=== PATIENT | female | born 1950 | race African-American/Black ===

== ENCOUNTER → 2016-12-25 | Outpatient (CLI) | payer MEDICARE, MEDICAID ==
[~2016-12-25] MED LIST: ALBU8I INH; AMLO5TAB2 PO; BRIN1SUS2 RIGHT EYE; CALC.25 PO; CARD120C4 PO; CLON.2 PO; CLON0.2T PO; COEN1CAP PO; DILT120C9 PO; DILT120T PO; DOXA1TAB34 PO; DOXA1TAB35 PO; GLUC1CAP16; LORTA5 PO; LOTE0.5G RIGHT EYE; LOVA20TA PO; LUMI0.01 EACH EYE; MEDR4PAK3 PO; OMEG1CAP50 PO; PNEU13P IM; POLYSOL14 EACH EYE; VENTAER INH; VITA2000 PO; VITA500T4 PO; WHIT15OI OP
[2016-12-25 11:14] LABS: AUTOMATED NEUTROPHIL # 3.5 TH/MM3 (1.8-7.7); BASOPHIL % 0.9 % (0.0-2.0); EOSINOPHIL # 0.1 TH/MM3 (0-0.4); EOSINOPHIL % 1.3 % (0.0-4.0); HEMATOCRIT 31.7 % (35.0-46.0); HEMO FLAGS DIFF FINAL; LYMPH % 24.6 % (9.0-44.0); LYMPHOCYTE # 1.3 TH/MM3 (1.0-4.8); MEAN CELL VOLUME 90.7 FL (80.0-100.0); MEAN CORPUSCULAR HEMOGLOBIN 31.1 PG (27.0-34.0); MEAN CORPUSCULAR HGB CONC 34.3 % (32.0-36.0); MONO % 6.9 % (0.0-8.0); NEUT % 66.3 % (16.0-70.0); PLATELET COUNT 163 TH/MM3 (150-450); RED BLOOD COUNT 3.49 MIL/MM3 (4.00-5.30); RED CELL DISTRIBUTION WIDTH 12.7 % (11.6-17.2); WHITE BLOOD COUNT 5.3 TH/MM3 (4.0-11.0)
[2016-12-25 11:46] LABS: ANION GAP 8 MEQ/L (5-15); AST (GOT) 9 U/L (15-37); BICARBONATE 27.3 MEQ/L (21.0-32.0); BLOOD UREA NITROGEN 32 MG/DL (7-18); CHLORIDE 108 MEQ/L (98-107); GLOMERULAR FILTRATION RATE 24 ML/MIN (>89); GLUCOSE,FASTING 90 MG/DL (74-99); SODIUM (NA) 143 MEQ/L (136-145)
[2016-12-25 11:57] LABS: ALKALINE PHOSPHATASE 70 U/L (45-117); ALT (GPT) 22 U/L (10-53); HDL CHOLESTEROL 49.6 MG/DL (40.0-60.0); LDL CHOLESTEROL 84 MG/DL (0-99); TOTAL BILIRUBIN ADULT 0.5 MG/DL (0.2-1.0)
[2016-12-25 16:16] LABS: HEMOGLOBIN A1b 0.7 %; HEMOGLOBIN Ao 86.8 %; HEMOGLOBIN F 0.8 %; HEMOGLOBIN LA1C 1.9 %; HEMOGLOBIN P3 3.7 %
== END ==
LOC: CLAB 10:40
PROVIDERS: ATTEND Internal Medicine Geriatric Medicine
DX: Z87.448 Personal history of other diseases of urinary system (principal); Z13.29 Encounter for screening for other suspected endocrine disorder; Z13.1 Encounter for screening for diabetes mellitus; Z11.59 Encounter for screening for other viral diseases; Z11.4 Encounter for screening for human immunodeficiency virus [HIV]; Z12.11 Encounter for screening for malignant neoplasm of colon
CPT/HCPCS: 36415; 80053; 80061; 83036; 84443; 85025; 86703; 86803

== ENCOUNTER → 2017-01-08 | Outpatient (CLI) | payer MEDICARE, MEDICAID ==
[~2017-01-08] MED LIST changes: -ALBU8I INH; -CALC.25 PO; -CARD120C4 PO; -CLON.2 PO; -DILT120C9 PO; -LORTA5 PO; -LOTE0.5G RIGHT EYE; -MEDR4PAK3 PO; -PNEU13P IM; -WHIT15OI OP
[2017-01-08 13:58] LABS: FERRITIN 149 NG/ML (8-252); TRANSFERRIN IRON PROFILE 194 MG/DL (200-360)
== END ==
LOC: CLAB 12:44
PROVIDERS: ATTEND Family Medicine
DX: D64.9 Anemia, unspecified (principal)
CPT/HCPCS: 36415; 82607; 82728; 82746; 83540; 83550

== ENCOUNTER → 2017-03-05 | Outpatient (CLI) | payer MEDICARE, MEDICAID ==
[~2017-03-05] MED LIST changes: -DILT120T PO; -DOXA1TAB35 PO
[2017-03-05 10:40] LABS: HEMATOCRIT 29.4 % (35.0-46.0); MEAN CELL VOLUME 91.4 FL (80.0-100.0); MEAN CORPUSCULAR HEMOGLOBIN 30.5 PG (27.0-34.0); MEAN CORPUSCULAR HGB CONC 33.4 % (32.0-36.0); PLATELET COUNT 165 TH/MM3 (150-450); RED BLOOD COUNT 3.21 MIL/MM3 (4.00-5.30); RED CELL DISTRIBUTION WIDTH 13.4 % (11.6-17.2); REVIEW FLAG FINAL; WHITE BLOOD COUNT 5.6 TH/MM3 (4.0-11.0)
[2017-03-05 11:05] LABS: BICARBONATE 27.5 MEQ/L (21.0-32.0); POTASSIUM 4.3 MEQ/L (3.5-5.1)
== END ==
LOC: CLAB 10:09
PROVIDERS: ATTEND Family Medicine
DX: I10 Essential (primary) hypertension (principal)
CPT/HCPCS: 36415; 80048; 85027

== ENCOUNTER → 2017-03-29 | Outpatient (CLI) | payer MEDICARE, MEDICAID ==
[2017-03-29 09:08] LABS: BASOPHIL % 0.4 % (0.0-2.0); EOSINOPHIL # 0.1 TH/MM3 (0-0.4); EOSINOPHIL % 1.4 % (0.0-4.0); HEMATOCRIT 28.2 % (35.0-46.0); HEMO FLAGS DIFF FINAL; LYMPH % 20.4 % (9.0-44.0); LYMPHOCYTE # 1.2 TH/MM3 (1.0-4.8); MEAN CELL VOLUME 90.9 FL (80.0-100.0); MEAN CORPUSCULAR HEMOGLOBIN 30.4 PG (27.0-34.0); MEAN CORPUSCULAR HGB CONC 33.4 % (32.0-36.0); MONO % 7.3 % (0.0-8.0); NEUT % 70.5 % (16.0-70.0); PLATELET COUNT 134 TH/MM3 (150-450); RED CELL DISTRIBUTION WIDTH 13.2 % (11.6-17.2); WHITE BLOOD COUNT 5.7 TH/MM3 (4.0-11.0)
[2017-03-29 09:17] LABS: BICARBONATE 27.4 MEQ/L (21.0-32.0); POTASSIUM 4.8 MEQ/L (3.5-5.1)
[2017-03-29 09:19] LABS: TOTAL PROTEIN SPE 6.2 GM/DL (6.0-7.6)
[2017-03-29 09:20] LABS: BLOOD, URINE NEG (NEG); GLUCOSE,URINE NEG (NEG); KETONE, URINE NEG (NEG); NITRITE,URINE NEG (NEG); PH, URINE 5.5 (5.0-8.5); SQUAMOUS EPITHELIAL CELL URINE <1 /hpf (0-5); URINE COLOR YELLOW (YELLW/STRAW)
[2017-03-29 22:33] LABS: ALBUMIN SPE 3.92 GM/DL (3.50-5.00); ALPHA 1 GLOBULIN 0.2 GM/DL (0.11-0.29); ALPHA 2 GLOBULIN 0.71 GM/DL (0.22-1.00); BETA GLOBULINS (SPE) 0.74 GM/DL (0.53-1.03)
== END ==
LOC: CLAB 08:33
PROVIDERS: ATTEND Internal Medicine Nephrology
DX: I12.9 Hypertensive chronic kidney disease with stage 1 through stage 4 chronic kidney disease, or unspecified chronic kidney disease (principal); N18.4 Chronic kidney disease, stage 4 (severe); N25.81 Secondary hyperparathyroidism of renal origin; R82.90 Unspecified abnormal findings in urine
CPT/HCPCS: 36415; 80069; 81001; 82043; 84165; 85025; 86335; 87086

== ENCOUNTER → 2017-05-22 | Outpatient (CLI) | payer MEDICARE, MEDICAID ==
[~2017-05-22] MED LIST changes: +CARD120T4 PO; +DILT120T PO; +FRESDRO EACH EYE; +MUPI2OIN TOPICAL; -POLYSOL14 EACH EYE
[2017-05-22 09:48] LABS: AUTOMATED NEUTROPHIL # 4.2 TH/MM3 (1.8-7.7); BASOPHIL % 0.3 % (0.0-2.0); EOSINOPHIL # 0.1 TH/MM3 (0-0.4); EOSINOPHIL % 1.4 % (0.0-4.0); HEMATOCRIT 30.5 % (35.0-46.0); HEMO FLAGS DIFF FINAL; LYMPH % 20.8 % (9.0-44.0); LYMPHOCYTE # 1.2 TH/MM3 (1.0-4.8); MEAN CELL VOLUME 92.4 FL (80.0-100.0); MEAN CORPUSCULAR HEMOGLOBIN 30.8 PG (27.0-34.0); MEAN CORPUSCULAR HGB CONC 33.3 % (32.0-36.0); MONO % 6.6 % (0.0-8.0); NEUT % 70.9 % (16.0-70.0); PLATELET COUNT 159 TH/MM3 (150-450); RED CELL DISTRIBUTION WIDTH 12.8 % (11.6-17.2)
[2017-05-22 10:09] LABS: ANION GAP 7 MEQ/L (5-15); BICARBONATE 28.4 MEQ/L (21.0-32.0); BLOOD UREA NITROGEN 30 MG/DL (7-18); CHLORIDE 108 MEQ/L (98-107); GLOMERULAR FILTRATION RATE 18 ML/MIN (>89); GLUCOSE,FASTING 92 MG/DL (74-99); POTASSIUM 4.1 MEQ/L (3.5-5.1); SODIUM (NA) 143 MEQ/L (136-145)
[2017-05-22 10:10] LABS: TRANSFERRIN IRON PROFILE 193 MG/DL (200-360)
[2017-05-24 03:53] LABS: MYELOPEROXIDASE LESS THAN 1.0 AI (<1.0); PROTEINASE-3 LESS THAN 1.0 AI (<1.0)
== END ==
LOC: CLAB 09:18
PROVIDERS: ATTEND Internal Medicine Nephrology
DX: I12.9 Hypertensive chronic kidney disease with stage 1 through stage 4 chronic kidney disease, or unspecified chronic kidney disease (principal); N18.4 Chronic kidney disease, stage 4 (severe); D63.1 Anemia in chronic kidney disease; N25.81 Secondary hyperparathyroidism of renal origin
CPT/HCPCS: 36415; 80069; 82043; 83540; 83550; 85025; 86021; 86038

== ENCOUNTER → 2017-09-10 | Outpatient (CLI) | payer MEDICARE, MEDICAID ==
[~2017-09-10] MED LIST changes: +ALBUAER3 INH; +BOOSINJ IM; -CARD120T4 PO; +FLU60SYR17 IM; -VENTAER INH
[2017-09-10 10:41] LABS: AUTOMATED NEUTROPHIL # 5.4 TH/MM3 (1.8-7.7); BASOPHIL # 0.1 TH/MM3 (0-0.2); BASOPHIL % 0.7 % (0.0-2.0); EOSINOPHIL # 0.1 TH/MM3 (0-0.4); EOSINOPHIL % 0.9 % (0.0-4.0); HEMATOCRIT 32.2 % (35.0-46.0); HEMO FLAGS DIFF FINAL; LYMPH % 17.3 % (9.0-44.0); LYMPHOCYTE # 1.3 TH/MM3 (1.0-4.8); MEAN CELL VOLUME 92.7 FL (80.0-100.0); MEAN CORPUSCULAR HEMOGLOBIN 31.6 PG (27.0-34.0); MEAN CORPUSCULAR HGB CONC 34.1 % (32.0-36.0); MONO % 7.9 % (0.0-8.0); NEUT % 73.2 % (16.0-70.0); PLATELET COUNT 163 TH/MM3 (150-450); RED BLOOD COUNT 3.47 MIL/MM3 (4.00-5.30); WHITE BLOOD COUNT 7.4 TH/MM3 (4.0-11.0)
[2017-09-10 11:03] LABS: BICARBONATE 28.8 MEQ/L (21.0-32.0); POTASSIUM 4.5 MEQ/L (3.5-5.1)
== END ==
LOC: CLAB 10:11
PROVIDERS: ATTEND Internal Medicine Nephrology
DX: I12.9 Hypertensive chronic kidney disease with stage 1 through stage 4 chronic kidney disease, or unspecified chronic kidney disease (principal); N18.4 Chronic kidney disease, stage 4 (severe); N25.81 Secondary hyperparathyroidism of renal origin
CPT/HCPCS: 36415; 80069; 82043; 82306; 83970; 85025

== ENCOUNTER 2017-10-11 14:56 | Inpatient (IN) | payer OTHER, MEDICARE, MEDICAID ==
[~2017-10-11] VITALS: Ht 170.2 cm; Wt 104.6 kg
[~2017-10-11 14:56] MED LIST changes: -BOOSINJ IM; -FLU60SYR17 IM
[2017-10-11 14:58] VITALS: BP 109/64; PULSE 83; RESP 20; TEMP 98.3; O2SAT 98
[2017-10-11] MEDS ORDERED: SODIUM CHLOR 0.9% 1000 ML INJ 1,000 ML IV ONE (16:01)
--- NOTE | 2017-10-11 16:05 | PD ---
HPI Chief Complaint: Syncope/Near-Syncope Time Seen by Provider: 15:55 Travel History International Travel<30 days: No Contact w/Intl Traveler<30days: No Traveled to known affect area: No History of Present Illness HPI 66-year-old Afro-[place]ic female presents the emergency department via POV with her friend, status post syncopal episode. 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 Her friend went to get her car and the patient had a syncopal episode that she does not recall. She feels she probably hit the back of her head and is complaining of right ankle pain. Patient has no history of syncope in the past. Patient is not diabetic. She does take hypertension medications which she does not remember the name of. Patient denies recent illness. She states she ate brunch at approximately 11: 00 this morning. Patient did feel nauseous prior to passing out. She now feels improved. She denies headache, or ongoing dizziness or nausea. Does have right ankle pain and does not want to ambulate on it. There are no open wounds or abrasions noted. Patient is allergic to all claude inhibitors, enalapril , and cayenne pepper. PFSH Past Medical History Arthritis: No Asthma: Yes Autoimmune Disease: No Anxiety: No Depression: No Heart Rhythm Problems: No Cancer: No Cardiovascular Problems: No High Cholesterol: No Chemotherapy: No Chest Pain: No Congestive Heart Failure: No COPD: No Cerebrovascular Accident: No Diabetes: No Diminished Hearing: No Endocrine: No GERD: No Glaucoma: Yes (NO RX) Genitourinary: No Hepatitis: Yes (HEPATITIS B) Hiatal Hernia: No Hypertension: Yes Immune Disorder: No Kidney Stones: No Musculoskeletal: No Neurologic: No Psychiatric: No Reproductive: Yes (HX. FIBROIDS/UTERINE POLYP, UTERINE MASS CURRENT) Respiratory: Yes Immunizations Current: Yes Migraines: No Radiation Therapy: No Renal Failure: No Seizures: No Sickle Cell Disease: No Sleep Apnea: No Thyroid Disease: No Ulcer: No Menopausal: Yes Past Surgical History Abdominal Surgery: No AICD: No Arteriovenous Shunt: No Cardiac Surgery: No Ear Surgery: No Endocrine Surgery: No Eye Surgery: Yes Genitourinary Surgery: No Gynecologic Surgery: Yes (FIBROIDS REMOVED, UTERINE POLYPECTOMY) Insulin Pump: No Joint Replacement: No Neurologic Surgery: No Oral Surgery: No Pacemaker: No Thoracic Surgery: No Other Surgery: Yes (POLYPS REMOVED, breast biopsy ) Social History Alcohol Use: No Tobacco Use: No Substance Use: No Allergies-Medications (Allergen,Severity, Reaction): Coded Allergies: benazepril (Unverified Allergy, Severe, Anaphylaxis, 10/11/17) captopril (Unverified Allergy, Severe, Anaphylaxis, 10/11/17) enalaprilat (Unverified Allergy, Severe, Anaphylaxis, 10/11/17) fosinopril (Unverified Allergy, Severe, Anaphylaxis, 10/11/17) lisinopril (Unverified Allergy, Severe, ANAPHYLACTIC REACTION, 10/11/17) quinapril (Unverified Allergy, Severe, Anaphylaxis, 10/11/17) cayenne pepper fruits (Unverified Allergy, Intermediate, Hives, 10/11/17) phenobarbital (Unverified Allergy, Mild, 10/11/17) Reported Meds & Prescriptions Reported Meds & Active Scripts Active Proair Hfa 8.5 GM Inh (Albuterol Sulfate) 90 Mcg/Act Aer 2 Puff INH Q4-6H PRN 108 mcg/actuation Diltiazem (Diltiazem HCl) 120 Mg Tab 120 Mg PO QID Mupirocin Topical (Mupirocin) 2 % Oint 1 Applic TOPICAL BID Amlodipine (Amlodipine Besylate) 5 Mg Tab 5 Mg PO DAILY Doxazosin (Doxazosin Mesylate) 4 Mg Tab 4 Mg PO DAILY Lovastatin 20 Mg Tab 20 Mg PO DAILY Reported [place] Opth (Polyvinyl Alcohol-Povidone Opth Drops) 2.7-2 % Soln 1 Drop EACH EYE QID Vitamin B-12 (Cyanocobalamin) 500 Mcg Tab 500 Mcg PO DAILY Glucosamine Chondroitin (Mxtephmfyty-Dbsazgkbadu-Lbb C-) 1 Cap Cap [place] 3 500 500 mg ([place]-3 Fatty Acids) 1 Cap Cap 1,000 Mg PO DAILY Vitamin D3 (Cholecalciferol) 2,000 Unit Cap 2,000 Units PO DAILY Co Q-10 (Coenzyme Q10 (Ubidecarenone)) 100 Mg Cap 100 Mg PO DAILY Clonidine (Clonidine HCl) 0.2 Mg Tab 0.2 Mg PO BID [place] Opth Drops (Bimatoprost) 0.01% Soln 1 Drop EACH EYE HS Simbrinza Opth Drops (Brinzolamide-Brimonidine Opth Drops) 1-0.2% Susp 1 Drop RIGHT EYE Q8HR Review of Systems Except as stated in HPI: all other systems reviewed are Neg General / Constitutional: No: Fever, Chills Eyes: No: Visual changes HENT: Positive: Lightheadedness, No: Headaches, Vertigo (see history of present illness), Sore Throat, Rhinitis, Rhinorrhea, Congestion, Nosebleed, Neck Stiffness, Neck Pain, Dental Difficulties, Earache Cardiovascular: No: Chest Pain or Discomfort Respiratory: No: Shortness of Breath Gastrointestinal: Positive: Nausea (previously), No: Vomiting, Diarrhea, Abdominal Pain Genitourinary: No: Dysuria Musculoskeletal: No: Pain Skin: No Rash Neurologic: Positive: Dizziness, Syncope, No: Weakness, Focal Abnormalities, Coordination Problem, Tremor, Ataxia, Headache, Change in Mentation Psychiatric: No: Depression Endocrine: No: Polydipsia Hematologic/Lymphatic: No: Easy Bruising Physical Exam Narrative GENERAL: Patient appears in no obvious distress. SKIN: Warm and dry. Normal color. Normal turgor. No signs of injury. HEAD: Atraumatic. Normocephalic. Nontender with palpation. EYES: Pupils equal and round. No scleral icterus. No injection or drainage. ENT: No nasal bleeding or discharge. Mucous membranes pink and moist. No dental injury. TMs are clear Bilaterally. Posterior pharynx is clear. Airway is patent. NECK: Trachea midline. No JVD. No bony tenderness or step-off. Range of motion is full and nontender. CARDIOVASCULAR: Regular rate and rhythm. No murmurs gallops or rubs. RESPIRATORY: No accessory muscle use. Clear to auscultation. Breath sounds equal bilaterally. GASTROINTESTINAL: Abdomen soft, non-tender, nondistended. Hepatic and splenic margins not palpable. MUSCULOSKELETAL: Extremities without clubbing, cyanosis, or edema. Patient has obvious swelling and tenderness to the bilateral right ankle suggestive of possible fracture versus significant sprain. [place] is significantly reduced secondary to pain. Patient has normal neurovascular exam distally. Capillary refill is brisk in the right toes. NEUROLOGICAL: Awake and alert. No obvious cranial nerve deficits. Motor grossly within normal limits. Five out of 5 muscle strength in the arms and legs. Normal speech. PSYCHIATRIC: Appropriate mood and affect; insight and judgment normal. Data Data Last Documented VS Vital Signs Date Time Temp Pulse Resp B/P (MAP) Pulse Ox O2 Delivery O2 Flow Rate FiO2 10/11/17 16:56 98 Room Air 10/11/17 14:58 98.3 83 20 Orders Orders Electrocardiogram (10/11/17 16:01) Complete Blood Count With Diff (10/11/17 16:01) Comprehensive Metabolic Panel (10/11/17 16:01) Magnesium (Mg) (10/11/17 16:01) Ckmb (Isoenzyme) Profile (10/11/17 16:01) Troponin I (10/11/17 16:01) Act Partial Throm Time (Ptt) (10/11/17 16:01) Prothrombin Time / Inr (Pt) (10/11/17 16:01) Urinalysis - C+S If Indicated (10/11/17 16:01) Chest, Single Ap (10/11/17 16:01) Ct Brain W/O Iv Contrast(Rout) (10/11/17 16:01) Blood Glucose (10/11/17 16:01) Ecg Monitoring (10/11/17 16:01) Iv Access Insert/Monitor (10/11/17 16:01) Oximetry (10/11/17 16:01) Sodium Chloride 0.9% Flush (Ns Flush) (10/11/17 16:15) Sodium Chlor 0.9% 1000 Ml Inj (Ns 1000 M (10/11/17 16:01) Ankle, Complete ([id number]) (10/11/17 16:01) Ice/Cold Pack (10/11/17 16:01) Splinting (10/11/17 ) Morphine Inj (Morphine Inj) (10/11/17 17:15) Ondansetron Inj (Zofran Inj) (10/11/17 17:15) CKMB (10/11/17 16:50) CKMB% (10/11/17 16:50) Fiberglass Short Leg Splint Ad (10/11/17 ) Fiberglass Sugartong Sp Ad Sl (10/11/17 ) Ice Cuff (10/11/17 ) Consult Orthopedic (10/11/17 ) Admit Order (Ed Use Only) (10/11/17 18:35) Labs Laboratory Tests Test 10/11/17 16:50 White Blood Count 13.0 TH/MM3 Red Blood Count 3.46 MIL/MM3 Hemoglobin 10.9 GM/DL Hematocrit 31.7 % Mean Corpuscular Volume 91.5 FL Mean Corpuscular Hemoglobin 31.6 PG Mean Corpuscular Hemoglobin Concent 34.5 % Red Cell Distribution Width 12.3 % Platelet Count 201 TH/MM3 Mean Platelet Volume 8.9 FL Neutrophils (%) (Auto) 89.6 % Lymphocytes (%) (Auto) 6.2 % Monocytes (%) (Auto) 3.9 % Eosinophils (%) (Auto) 0.2 % Basophils (%) (Auto) 0.1 % Neutrophils # (Auto) 11.7 TH/MM3 Lymphocytes # (Auto) 0.8 TH/MM3 Monocytes # (Auto) 0.5 TH/MM3 Eosinophils # (Auto) 0.0 TH/MM3 Basophils # (Auto) 0.0 TH/MM3 CBC Comment DIFF FINAL Differential Comment Prothrombin Time 10.3 SEC Prothromb Time International Ratio 1.0 RATIO Activated Partial Thromboplast Time 21.9 SEC Blood Urea Nitrogen 38 MG/DL Creatinine 3.40 MG/DL Random Glucose 98 MG/DL Total Protein 7.8 GM/DL Albumin 3.9 GM/DL Calcium Level 8.8 MG/DL Magnesium Level 2.2 MG/DL Alkaline Phosphatase 100 U/L Aspartate Amino Transf (AST/SGOT) 25 U/L Alanine Aminotransferase (ALT/SGPT) 22 U/L Total Bilirubin 0.3 MG/DL Sodium Level 139 MEQ/L Potassium Level 4.7 MEQ/L Chloride Level 107 MEQ/L Carbon Dioxide Level 25.8 MEQ/L Anion Gap 6 MEQ/L Estimat Glomerular Filtration Rate 16 ML/MIN Total Creatine Kinase 173 U/L Creatine Kinase MB 0.5 NG/ML Troponin I LESS THAN 0.02 NG/ML MDM Medical Decision Making Medical Screen Exam Complete: Yes Emergency Medical Condition: Yes Medical Record Reviewed: Yes Differential Diagnosis Syncopal episode. Electrolyte imbalance. Dehydration. Narrative Course Patient appears medically stable at time of exam. EKG, CT scan of the head, and chest x-ray are ordered. Labs ordered including CBC, CMP, magnesium, cardiac panel, urinalysis. IV access is obtained and the patient is given 1000 mL normal saline bolus. EKG shows normal sinus rhythm without specific T-wave changes. This was reviewed with Dr. FORMAN. CT of the head is unremarkable per radiologist. Chest x-ray is normal per radiologist. Labs show slight leukocytosis of 13.0. As well as mild anemia with a hemoglobin of 10.9 which is typical for the patient. Coagulation studies are unremarkable. Right ankle x-ray shows: Slightly comminuted fracture of the medial malleolus. Oblique fracture of the distal fibula extending to the articular surface. There is widening of the syndesmosis. The talar dome appears intact. Soft tissue swelling about the ankle. Call was placed to orthopedic, Dr. Acharya. Patient was discussed and he is requesting the patient be admitted with nothing by mouth after midnight for open reduction and internal fixation of the right ankle. Labs are significant for possible acute on chronic renal disease. Call was placed to the hospitalist to discuss admission. Diagnosis Primary Impression: Syncope and collapse Additional Impressions: Closed bimalleolar fracture of right ankle Qualified Codes: S82.841A - Displaced bimalleolar fracture of right lower leg , initial encounter for closed fracture Work related injury Acute on chronic renal insufficiency Admitting Information Admitting Physician Requests: Admit Condition: Stable Vincent Silva Oct 11, 2017 16:05
[2017-10-11] MEDS ORDERED: SODIUM CHLORIDE 0.9% FLUSH 10 ML FLUSH IVF PRN (16:15)
--- NOTE | 2017-10-11 16:51 | RADRPT ---
EXAM DATE/TIME: 10/11/2017 16:19 [facility] COMPARISON: CHEST SINGLE AP, May 09, 2016, 11:51. INDICATIONS : Shortness of breath. MEDICAL HISTORY : Asthma, Gout, Breast Tumors. Diabetes. SURGICAL HISTORY : Hysterectomy. Breast Bx. ENCOUNTER: Initial ACUITY: 1 day PAIN SCORE: 0/10 LOCATION: Bilateral chest FINDINGS: A single view of the chest demonstrates the lungs to be symmetrically aerated without evidence of mas s, infiltrate or effusion. The cardiomediastinal contours are unremarkable. Osseous structures are intact. CONCLUSION: No acute disease. Emiliano Bradshaw MD on October 11, 2017 at 16:48 Board Certified Radiologist. This report was verified electronically.
[2017-10-11 16:56] VITALS: O2SAT 98
--- NOTE | 2017-10-11 17:14 | RADRPT ---
EXAM DATE/TIME: 10/11/2017 16:51 [facility] COMPARISON: CT BRAIN W/O CONTRAST, February 01, 2011, 15:23. INDICATIONS : Syncopal episode with fall. RADIATION DOSE: 56.77 CTDIvol (mGy) MEDICAL HISTORY : Hypertension. SURGICAL HISTORY : None. ENCOUNTER: Initial ACUITY: 1 day PAIN SCALE: 0/10 LOCATION: cranial TECHNIQUE: Multiple contiguous axial images were obtained of the head. Using automated exposure control and adj ustment of the mA and/or kV according to patient size, radiation dose was kept as low as reasonably a chievable to obtain optimal diagnostic quality images. DICOM format image data is available electro nically for review and comparison. FINDINGS: CEREBRUM: The ventricles are normal for age. No evidence of midline shift, mass lesion, hemorrhage or acute in farction. No extra-axial fluid collections are seen. POSTERIOR FOSSA: The cerebellum and brainstem are intact. The 4th ventricle is midline. The cerebellopontine angle i s unremarkable. EXTRACRANIAL: The visualized portion of the orbits is intact. SKULL: The calvaria is intact. No evidence of skull fracture. CONCLUSION: Negative noncontrast CT Emiliano Bradshaw MD on October 11, 2017 at 17:10 Board Certified Radiologist. This report was verified electronically.
[2017-10-11] MEDS ORDERED: ONDANSETRON HCL 4 MG/2 ML VIAL IV PUSH ONE (17:15)
[2017-10-11] MEDS ORDERED: MORPHINE SULFATE 2 MG/ML INJ IV PUSH ONE (17:15)
[2017-10-11 17:24] LABS: AUTOMATED NEUTROPHIL # 11.7 TH/MM3 (1.8-7.7); BASOPHIL % 0.1 % (0.0-2.0); EOSINOPHIL % 0.2 % (0.0-4.0); HEMATOCRIT 31.7 % (35.0-46.0); HEMOGLOBIN 10.9 GM/DL (11.6-15.3); LYMPH % 6.2 % (9.0-44.0); LYMPHOCYTE # 0.8 TH/MM3 (1.0-4.8); MEAN CELL VOLUME 91.5 FL (80.0-100.0); MEAN CORPUSCULAR HEMOGLOBIN 31.6 PG (27.0-34.0); MEAN CORPUSCULAR HGB CONC 34.5 % (32.0-36.0); MEAN PLATELET VOLUME 8.9 FL (7.0-11.0); MONO % 3.9 % (0.0-8.0); MONOCYTE # 0.5 TH/MM3 (0-0.9); NEUT % 89.6 % (16.0-70.0); PLATELET COUNT 201 TH/MM3 (150-450); RED BLOOD COUNT 3.46 MIL/MM3 (4.00-5.30); RED CELL DISTRIBUTION WIDTH 12.3 % (11.6-17.2)
--- NOTE | 2017-10-11 17:29 | RADRPT ---
EXAM DATE/TIME: 10/11/2017 16:22 [facility] COMPARISON: No previous studies available for comparison. INDICATIONS : Medial right ankle pain after falling. MEDICAL HISTORY : Asthma, Gout, Breast Tumors. Diabetes. SURGICAL HISTORY : Hysterectomy. Breast Bx. ENCOUNTER: Initial ACUITY: 1 day PAIN SCORE: 10/10 LOCATION: Right ankle FINDINGS: Slightly comminuted fracture of the medial malleolus. Oblique fracture of the distal fibula extending to the articular surface. There is widening of the syndesmosis. The talar dome appears intact. Soft tissue swelling about the ankle. CONCLUSION: 1. Bimalleolar fracture, as above. Bandar James MD on October 11, 2017 at 17:24 Board Certified Radiologist. This report was verified electronically.
[2017-10-11 17:41] LABS: PROTHROMBIN TIME - PATIENT 10.3 SEC (9.8-11.6)
[2017-10-11 17:56] LABS: ALBUMIN 3.9 GM/DL (3.4-5.0); ALKALINE PHOSPHATASE 100 U/L (45-117); ALT (GPT) 22 U/L (10-53); AST (GOT) 25 U/L (15-37); BICARBONATE 25.8 MEQ/L (21.0-32.0); BLOOD UREA NITROGEN 38 MG/DL (7-18); CALCIUM 8.8 MG/DL (8.5-10.1); CHLORIDE 107 MEQ/L (98-107); GLOMERULAR FILTRATION RATE 16 ML/MIN (>89); GLUCOSE,RANDOM 98 MG/DL (74-106); MAGNESIUM 2.2 MG/DL (1.5-2.5); SODIUM (NA) 139 MEQ/L (136-145); TOTAL BILIRUBIN ADULT 0.3 MG/DL (0.2-1.0); TOTAL PROTEIN 7.8 GM/DL (6.4-8.2); TROPONIN I LESS THAN 0.02 NG/ML (0.02-0.05)
[2017-10-11] MEDS ORDERED: MAGNESIUM HYDROXIDE SUSP 30 ML CUP PO PRN (18:45)
[2017-10-11] MEDS ORDERED: ACETAMINOPHEN/HYDROcodone 325 MG/5 MG TAB PO PRN (18:45)
[2017-10-11] MEDS ORDERED: BISACODYL 10 MG SUPP RECTAL PRN (18:45)
[2017-10-11] MEDS ORDERED: ACETAMINOPHEN 325 MG TAB PO PRN (18:45)
[2017-10-11] MEDS ORDERED: NALOXONE HCL 0.4 MG/ML AMP IV PUSH PRN (18:45)
[2017-10-11] MEDS ORDERED: SODIUM CHLORIDE 0.9% FLUSH 10 ML FLUSH IV FLUSH PRN (18:45)
[2017-10-11] MEDS ORDERED: LACTULOSE SYRUP 20 GM/30 ML CUP PO PRN (18:45)
[2017-10-11] MEDS ORDERED: MORPHINE SULFATE 2 MG/ML INJ IV PUSH PRN ×2 (18:45)
[2017-10-11] MEDS ORDERED: SENNOSIDES 8.6 MG TAB PO PRN (18:45)
[2017-10-11] MEDS ORDERED: ONDANSETRON HCL 4 MG/2 ML VIAL IVP PRN (18:45)
[2017-10-11 20:40] VITALS: BP 181/81; PULSE 88; RESP 18; TEMP 99; O2SAT 98
[2017-10-11] MEDS: DOCUSATE SODIUM 50 MG/SENNA 8.6 MG TAB PO SCH (21:00)
[2017-10-11] MEDS ORDERED: CHLORHEXIDINE GLUCONATE 2 % 1 PACK (2 CLOTHS) TOPICAL PRN (22:15)
[2017-10-11] MEDS ORDERED: POVIDONE IODINE 5% (ANTISEPSIS KIT) 4 APPLICATIONS EACH NARE PRN (22:15)
[2017-10-11] MEDS ORDERED: LACTATED RINGER'S 1000 ML IV PRN (22:15)
[2017-10-11] MEDS ORDERED: SODIUM CHLORID 0.9% 500 ML IV PRN (22:15)
[2017-10-11] MEDS ORDERED: METOPROLOL TARTRATE 25 MG TAB PO PRN (22:15)
[2017-10-12] VITALS (7 sets, daily range): BP systolic 154–193; BP diastolic 75–85; PULSE 63–103; RESP 17–18; TEMP 97–99.4; O2SAT 94–99
[2017-10-12] MEDS: SODIUM CHLORIDE 0.9% FLUSH 10 ML FLUSH IV FLUSH SCH ×3 (00:06→21:18)
[2017-10-12] MEDS: ACETAMINOPHEN/HYDROcodone 325 MG/7.5 MG TAB PO PRN ×2 (00:07→21:18)
[2017-10-12] MEDS ORDERED: cloNIDine HCL 0.1 MG TAB PO ONE (00:30)
[2017-10-12] MEDS ORDERED: DILTIAZEM HCL 30 MG TAB PO ONE (01:00)
[2017-10-12] MEDS: LATANOPROST 0.005% OPHT SOLN 2.5 ML BTL EACH EYE SCH ×2 (01:34→21:18)
[2017-10-12] MEDS: SODIUM CHLOR 0.9% 1000 ML INJ 1,000 ML IV SCH ×3 (01:35→16:00)
--- NOTE | 2017-10-12 05:15 | HHI.HP ---
[facility] Sulma Arriola MD . Admission Diagnosis Syncope/Renal Failure/Right Ankle Fracture Diagnoses: (1) Syncope and collapse (2) Closed bimalleolar fracture of right ankle Chief Complaint: Passed out; woke up with severe right ankle pain Travel History International Travel<30 Days: No Contact w/Intl Traveler <30 Da: No Traveled to Known Affected Are: No History of Present Illness Ms. Cisneros is a pleasant 66-year-old female with a history of asthma, glaucoma, hepatitis B, hypertension, irregular heart rhythm, and heart murmur who presented to the emergency room on 10/11/2017 following a syncopal episode that resulted in a right bimalleolar ankle fracture. 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 She had eaten lunch which consisted of raisin bran, a banana, and cranberry juice prior to going to work. She states she was sitting and talking to a lady who lived near her crossing site when she began to experience severe vertigo. She actually had to hold onto a light pole to steady herself. She also experienced diaphoresis and nausea. She states that this went on for several minutes and the lady left her to go get a car to take her to get help when she passed out. She describes it as "lights out". She states she fell backwards and may have hit her head. Head CT in the EGD is negative. She had loss of bowel function with large bronson consistency dark green bowel with no blood or melena noted. She denies loss of bladder function. She denies any seizure-like activity or biting her tongue. She had a cardiac workup with Dr. Whelan about 5 years ago but has had no follow-up since that time. She reports an irregular heart rhythm but denies atrial fibrillation and reports a heart murmur that she's had since childhood. She denies any chest pain, shortness of breath, headaches, unilateral weakness, or paresthesias prior to her in couple episode. She denies any recent illness, cold or flu symptoms, fevers or chills, nausea, vomiting, diarrhea, cough, or shortness of breath. She states she has been feeling very well and had gotten a clean bill of health at her primary care physician's office this week. Review of Systems Except as stated in HPI: all other systems reviewed are Neg Past Family Social History Past Medical History Asthma Glaucoma Hepatitis B Hypertension Fibroid uterus Heart murmur Irregular heart rate . Past Surgical History Bilateral breast biopsy Oophorectomy . Reported Medications Reported Meds & Active Scripts Active Proair Hfa 8.5 GM Inh (Albuterol Sulfate) 90 Mcg/Act Aer 2 Puff INH Q4-6H PRN 108 mcg/actuation Diltiazem (Diltiazem HCl) 120 Mg Tab 120 Mg PO QID Mupirocin Topical (Mupirocin) 2 % Oint 1 Applic TOPICAL BID Amlodipine (Amlodipine Besylate) 5 Mg Tab 5 Mg PO DAILY Doxazosin (Doxazosin Mesylate) 4 Mg Tab 4 Mg PO DAILY Lovastatin 20 Mg Tab 20 Mg PO DAILY Reported Vitamin B-12 (Cyanocobalamin) 500 Mcg Tab 500 Mcg PO DAILY Glucosamine Chondroitin (Vviaqchmgnb-Umavzrcdijm-Hyx C-) 1 Cap Cap [place] 3 500 500 mg ([place]-3 Fatty Acids) 1 Cap Cap 1,000 Mg PO DAILY Vitamin D3 (Cholecalciferol) 2,000 Unit Cap 2,000 Units PO DAILY Co Q-10 (Coenzyme Q10 (Ubidecarenone)) 100 Mg Cap 100 Mg PO DAILY Lumigan Opth Drops (Bimatoprost) 0.01% Soln 1 Drop EACH EYE HS . Allergies: Coded Allergies: benazepril (Unverified Allergy, Severe, Anaphylaxis, 10/11/17) captopril (Unverified Allergy, Severe, Anaphylaxis, 10/11/17) enalaprilat (Unverified Allergy, Severe, Anaphylaxis, 10/11/17) fosinopril (Unverified Allergy, Severe, Anaphylaxis, 10/11/17) lisinopril (Unverified Allergy, Severe, ANAPHYLACTIC REACTION, 10/11/17) quinapril (Unverified Allergy, Severe, Anaphylaxis, 10/11/17) cayenne pepper fruits (Unverified Allergy, Intermediate, Hives, 10/11/17) phenobarbital (Unverified Allergy, Mild, 10/11/17) Active Ordered Medications Current Medications Sodium Chloride (NS Flush) 2 ml UNSCH PRN IVF FLUSH AFTER USING IV ACCESS; Start 10/11/17 at 16:15; Stop 10/11/17 at 22:01; Status DC Sodium Chloride 1,000 ml @ 1,000 mls/hr Q1H ONCE IV Last administered on at 16:56; Start 10/11/17 at 16:01; Stop 10/11/17 at 17:00; Status DC Morphine Sulfate (Morphine Inj) 2 mg ONCE ONCE IV PUSH Last administered on 08/18at 18:07; Start 10/11/17 at 17:15; Stop 10/11/17 at 17:16; Status DC Ondansetron HCl (Zofran Inj) 4 mg ONCE ONCE IV PUSH Last administered on at 18:08; Start 10/11/17 at 17:15; Stop 10/11/17 at 17:16; Status DC Sodium Chloride 1,000 ml @ 100 mls/hr Q10H IV Last administered on 10/12/17at 01:35; Start 10/11/17 at 20:00 Sodium Chloride (NS Flush) 2 ml UNSCH PRN IV FLUSH FLUSH AFTER USING IV ACCESS ; Start 10/11/17 at 18:45 Sodium Chloride (NS Flush) 2 ml BID IV FLUSH Last administered on 10/12/17at 00: 06; Start 10/11/17 at 21:00 Ondansetron HCl (Zofran Inj) 4 mg Q6H PRN IVP NAUSEA OR VOMITING; Start at 18:45 Acetaminophen (Tylenol) 650 mg Q6H PRN PO PAIN SCALE 1 TO 2; Start 10/11/17 at 18:45 Acetaminophen/ Hydrocodone Bitart ([place]nee 5-325 Mg) 1 tab Q4H PRN PO PAIN SCALE 3 TO 5; Start 10/11/17 at 18:45 Acetaminophen/ Hydrocodone Bitart ([place] 7.5-325 Mg) 1 tab Q4H PRN PO PAIN SCALE 6 TO 10 Last administered on 10/12/17at 00:07; Start 10/11/17 at 18:45 Morphine Sulfate (Morphine Inj) 2 mg Q3H PRN IV PUSH Pain 3-5; if unable to take PO; Start 10/11/17 at 18:45 Morphine Sulfate (Morphine Inj) 4 mg Q3H PRN IV PUSH Pain 6-10;if unable to take PO; Start 10/11/17 at 18:45 Naloxone HCl (Narcan Inj) 0.4 mg UNSCH PRN IV PUSH SEE LABEL COMMENTS; Start at 18:45 Senna/Docusate Sodium (Elisa-Colace) 1 tab BID PO ; Start 10/11/17 at 21:00 Magnesium Hydroxide (Milk Of Magnesia Liq) 30 ml Q12H PRN PO Mild constipation ; Start 10/11/17 at 18:45 Sennosides (Senokot) 17.2 mg Q12H PRN PO Moderate constipation; Start 10/11/17 at 18:45 Bisacodyl (Dulcolax Supp) 10 mg DAILY PRN RECTAL SEVERE CONSITIPATION; Start at 18:45 Lactulose (Lactulose Liq) 30 ml DAILY PRN PO SEVERE CONSITIPATION; Start at 18:45 Lactated Ringer's 1,000 ml @ 30 mls/hr Q24H PRN IV SEE LABEL COMMENTS; Start at 22:15; Stop 10/14/17 at 22:14 Sodium Chloride 500 ml @ 30 mls/hr [id number] PRN IV SEE LABEL COMMENTS; Start 08/18 at 22:15; Stop 10/14/17 at 22:14 Metoprolol Tartrate (Lopressor) 25 mg SALES MARKET LEADER PRN PO SEE LABEL COMMENTS; Start 10/11/17 at 22:15; Stop 10/14/17 at 22:14 Povidone Iodine (Betadine 5% Antisepsis Kit) 1 applic SALES MARKET LEADER PRN EACH NARE SEE LABEL COMMENTS; Start 10/11/17 at 22:15; Stop 10/14/17 at 22:14 Chlorhexidine Gluconate (Chlorhexidine 2% Cloth) 3 pack SALES MARKET LEADER PRN TOPICAL SEE LABEL COMMENTS; Start 10/11/17 at 22:15; Stop 10/14/17 at 22:14 Amlodipine Besylate (Norvasc) 5 mg DAILY PO ; Start 10/12/17 at 09:00; Status Future Hold Doxazosin Mesylate (Cardura) 4 mg DAILY PO ; Start 10/12/17 at 09:00; Status Future Hold Pravastatin Sodium (Pravachol) 20 mg DAILY PO ; Start 10/12/17 at 09:00 Latanoprost (Xalatan 0.005% Opth Soln) 1 drop HS EACH EYE Last administered on 10/12/17at 01:34; Start 10/12/17 at 01:00 Diltiazem HCl (Cardizem) 120 mg QID PO ; Start 10/12/17 at 09:00; Status Future Hold Clonidine (Catapres) 0.1 mg ONCE ONCE PO ; Start 10/12/17 at 00:30; Stop at 00:45; Status DC Diltiazem HCl (Cardizem) 60 mg ONCE ONCE PO Last administered on 10/12/17at 01: 13; Start 10/12/17 at 01:00; Stop 10/12/17 at 01:01; Status DC . Family History Mother with COPD, coronary artery disease status post open heart surgery, and throat cancer Father with polio and alcohol abuse . Social History Tobacco: Denies Alcohol: Denies Illicit Drugs: Denies Works as a primary school teacher librarian . Physical Exam Vital Signs Vital Signs Date Time Temp Pulse Resp B/P (MAP) Pulse Ox O2 Delivery O2 Flow Rate FiO2 10/12/17 04:04 98.1 90 18 157/81 (106) 97 10/12/17 00:17 99.4 103 18 193/75 (114) 97 10/11/17 20:40 99.0 88 18 181/81 (114) 98 10/11/17 19:44 10/11/17 16:56 98 Room Air 10/11/17 14:58 98.3 83 20 109/64 (79) 98 Room Air Physical Exam GENERAL: This is a very pleasant female patient, in no apparent distress. SKIN: No rashes. Cool and dry. HEAD: Atraumatic. Normocephalic. EYES: No scleral icterus. No injection or drainage. ENT: Nose without bleeding, purulent drainage. NECK: Trachea midline. No JVD or lymphadenopathy. CARDIOVASCULAR: Regular rate and rhythm 2/6 systolic murmur best heard in aortic area. RESPIRATORY: Clear to auscultation. Breath sounds equal bilaterally. No wheezes , rales, or rhonchi. GASTROINTESTINAL: Abdomen soft, non-tender, nondistended. No guarding. MUSCULOSKELETAL: Extremities without clubbing, cyanosis. Right lower extremity in splint. Patient is able to wiggle her toes, sensation is intact, and capillary refill is brisk. NEUROLOGICAL: Awake and alert. Motor and sensory grossly within normal limits. Normal speech. . Laboratory Laboratory Tests Test 10/11/17 16:50 White Blood Count 13.0 Red Blood Count 3.46 Hemoglobin 10.9 Hematocrit 31.7 Mean Corpuscular Volume 91.5 Mean Corpuscular Hemoglobin 31.6 Mean Corpuscular Hemoglobin Concent 34.5 Red Cell Distribution Width 12.3 Platelet Count 201 Mean Platelet Volume 8.9 Neutrophils (%) (Auto) 89.6 Lymphocytes (%) (Auto) 6.2 Monocytes (%) (Auto) 3.9 Eosinophils (%) (Auto) 0.2 Basophils (%) (Auto) 0.1 Neutrophils # (Auto) 11.7 Lymphocytes # (Auto) 0.8 Monocytes # (Auto) 0.5 Eosinophils # (Auto) 0.0 Basophils # (Auto) 0.0 CBC Comment DIFF FINAL Differential Comment Prothrombin Time 10.3 Prothromb Time International Ratio 1.0 Activated Partial Thromboplast Time 21.9 Blood Urea Nitrogen 38 Creatinine 3.40 Random Glucose 98 Total Protein 7.8 Albumin 3.9 Calcium Level 8.8 Magnesium Level 2.2 Alkaline Phosphatase 100 Aspartate Amino Transf (AST/SGOT) 25 Alanine Aminotransferase (ALT/SGPT) 22 Total Bilirubin 0.3 Sodium Level 139 Potassium Level 4.7 Chloride Level 107 Carbon Dioxide Level 25.8 Anion Gap 6 Estimat Glomerular Filtration Rate 16 Total Creatine Kinase 173 Creatine Kinase MB 0.5 Troponin I LESS THAN 0.02 Result Diagram: 10/11/17 1650 10/11/17 1650 Imaging Last Impressions Head CT 10/11/17 1601 Signed Impressions: Service Date/Time: October 16:51 - CONCLUSION: Negative noncontrast CT Emiliano Bradshaw MD Chest X-Ray 10/11/17 1601 Signed Impressions: Service Date/Time: October 16:19 - CONCLUSION: No acute disease. Emiliano Bradshaw MD Ankle X-Ray 10/11/17 1601 Signed Impressions: Service Date/Time: October 16:22 - CONCLUSION: 1. Bimalleolar fracture, as above. Bandar James MD . Caprini VTE Risk Assessment Caprini VTE Risk Assessment: Mod/High Risk (score >= 2) Caprini Risk Assessment Model Point Value = 1 Point Value = 2 Point Value = 3 Point Value = 5 Age 41-60 Minor surgery BMI > 25 kg/m2 Swollen legs Varicose veins or History of unexplained or recurrent spontaneous Oral contraceptives or hormone replacement Sepsis (< 1 month) Serious lung disease, including pneumonia (< 1 month) Abnormal pulmonary function Acute myocardial infarction Congestive heart failure (< 1 month) History of inflammatory bowel disease Medical patient at bed rest Age 61-74 Arthroscopic surgery Major open surgery (> 45 min) Laparoscopic surgery (> 45 min) Malignancy Confined to bed (> 72 hours) Immobilizing plaster cast Central venous access Age >= 75 History of VTE Family history of VTE Factor V Leiden Prothrombin [id number] Lupus anticoagulant Anticardiolipin antibodies Elevated serum homocysteine Heparin-induced thrombocytopenia Other congenital or acquired thrombophilia Stroke (< 1 month) Elective arthroplasty Hip, pelvis, or leg fracture Acute spinal cord injury (< 1 month) Prophylaxis Regimen Total Risk Factor Score Risk Level Prophylaxis Regimen 0-1 Low Early ambulation 2 Moderate Order ONE of the following: *Sequential Compression Device (SCD) *Heparin 5000 units SQ BID 3-4 Higher Order ONE of the following medications: *Heparin 5000 units SQ TID *Enoxaparin/Lovenox 40 mg SQ daily (WT < 150 kg, CrCl > 30 mL/min) *Enoxaparin/Lovenox 30 mg SQ daily (WT < 150 kg, CrCl > 10-29 mL/min) *Enoxaparin/Lovenox 30 mg SQ BID (WT < 150 kg, CrCl > 30 mL/min) AND/OR *Sequential Compression Device (SCD) 5 or more Highest Order ONE of the following medications: *Heparin 5000 units SQ TID (Preferred with Epidurals) *Enoxaparin/Lovenox 40 mg SQ daily (WT < 150 kg, CrCl > 30 mL/min) *Enoxaparin/Lovenox 30 mg SQ daily (WT < 150 kg, CrCl > 10-29 mL/min) *Enoxaparin/Lovenox 30 mg SQ BID (WT < 150 kg, CrCl > 30 mL/min) AND *Sequential Compression Device (SCD) Assessment and Plan Problem List: (1) Syncope and collapse ICD Code: R55 - Syncope and collapse Status: Acute (2) Closed bimalleolar fracture of right ankle ICD Code: S82.841A - Displaced bimalleolar fracture of right lower leg, initial encounter for closed fracture Status: Acute Assessment and Plan Ms. Cisneros is a pleasant 66-year-old female with a history of asthma, glaucoma, hepatitis B, hypertension, irregular heart rhythm, and heart murmur who presented to the emergency room on 10/11/2017 following a syncopal episode that resulted in a right bimalleolar ankle fracture. Syncope and collapse - Cardiac enzyme normal on admission, EKG reviewed personally - SR with no significant ischemic changes - check carotid ultrasound to rule out carotid stenosis - Echocardiogram to evaluate cardiac structure and function - Consider EEG - Check orthostatic vital signs when patient is able to stand - Restart Cardizem at half the home dose - hold amlodipine and Cardura for now Bimalleolar fracture - Orthopedic consult - [place] by mouth and IV morphine as needed for pain - Nothing by mouth for surgical correction DVT prophylaxis - SCD TEDs Discussed Condition With Dr. Izaguirre, RN, and patient Physician Certification 2 Midnight Certification Type: Admission for Inpatient Services Order for Inpatient Services The services are ordered in accordance with Medicare regulations or non- Medicare payer requirements, as applicable. In the case of services not specified as inpatient-only, they are appropriately provided as inpatient services in accordance with the 2-midnight benchmark. Estimated LOS (days): 3 days is the estimated time the patient will need to remain in the hospital, assuming treatment plan goals are met and no additional complications. Post-Hospital Plan: Home Problem Qualifiers (1) Closed bimalleolar fracture of right ankle: Qualified Codes: S82.841A - Displaced bimalleolar fracture of right lower leg, initial encounter for closed fracture Cori South Oct 12, 2017 05:15
--- NOTE | 2017-10-12 06:46 | PD.ORT.PN ---
Subjective Subjective Remarks s/p passed out while at work right ankle pain. no other complaints. Objective Vitals Vital Signs Date Time Temp Pulse Resp B/P (MAP) Pulse Ox O2 Delivery O2 Flow Rate FiO2 10/12/17 04:04 98.1 90 18 157/81 (106) 97 10/12/17 00:17 99.4 103 18 193/75 (114) 97 10/11/17 20:40 99.0 88 18 181/81 (114) 98 10/11/17 19:44 10/11/17 16:56 98 Room Air 10/11/17 14:58 98.3 83 20 109/64 (79) 98 Room Air I/O 10/11/17 10/11/17 10/11/17 10/12/17 10/12/17 10/12/17 07:00 15:00 23:00 07:00 15:00 23:00 Intake Total 600 ml Balance 600 ml Intake Oral 600 ml # Voids 1 # Bowel Movements 0 Result Diagram: 10/11/17 1650 10/11/17 1650 Other Results Laboratory Tests Test 10/11/17 16:50 Prothromb Time International Ratio 1.0 RATIO Prothrombin Time 10.3 SEC (9.8-11.6) Imaging Last [address] 10/11/17 1601 Signed Impressions: Service Date/Time: October 16:51 - CONCLUSION: Negative noncontrast CT Emiliano Bradshaw MD Chest X-Ray 10/11/17 1601 Signed Impressions: Service Date/Time: October 16:19 - CONCLUSION: No acute disease. Emiliano Bradshaw MD Ankle X-Ray 10/11/17 1601 Signed Impressions: Service Date/Time: October 16:22 - CONCLUSION: 1. Bimalleolar fracture, as above. Bandar James MD Objective Remarks RLE: +short leg splint. intact. NVI Assessment & Plan Assessment and Plan 1) Right Bimalleolar Ankle Fx -npo -consents -surgery today with Hartmann -POD 0 -NWB -maintain splint -elevate -CM for discharge planning home vs rehab -scripts on chart -f/u with Shahbaz or PA in 2 weeks Willy Walsh PA/Stabber PA Oct 12, 2017 06:45
[2017-10-12] MEDS ORDERED: HYDR-3580 PO (06:47)
[2017-10-12] MEDS ORDERED: WALKER/ADULT/FO1 MIS (06:47)
[2017-10-12] MEDS ORDERED: WHEEMIS3 (06:47)
--- NOTE | 2017-10-12 06:48 | HHI.FF ---
Face to Face Verification Diagnosis: (1) Closed bimalleolar fracture of right ankle Physical Therapy Gait training Right LE Weight Bearing: Non WB Nursing Dressing Changes: Do not change dressing I have seen patient Adrianne Cisneros on 10/12/17. My clinical findings support the need for the requested home health care services because: Ltd mobility - disease progression I certify that my clinical findings support that this patient is homebound because: Post-op weakness Willy Walsh/Change Control Specialist PA Oct 12, 2017 06:48
[2017-10-12 07:30] LABS: BICARBONATE 27.1 MEQ/L (21.0-32.0); CALCIUM 8.1 MG/DL (8.5-10.1); CREATININE 3.35 MG/DL (0.50-1.00)
[2017-10-12 07:34] LABS: TROPONIN I LESS THAN 0.02 NG/ML (0.02-0.05)
[2017-10-12] MEDS ORDERED: ceFAZolin INJ 1,000 MG VIAL ONE (08:19)
[2017-10-12] MEDS ORDERED: GENTAMICIN SULFATE 80 MG/2 ML VIAL ONE (08:19)
[2017-10-12] MEDS ORDERED: VANCOMYCIN HCL 1000 MG VIAL ONE (08:19)
[2017-10-12] MEDS ORDERED: amLODIPine BESYLATE 5 MG TAB PO SCH (09:00)
[2017-10-12] MEDS ORDERED: DOXAZOSIN MESYLATE 4 MG TAB PO SCH (09:00)
[2017-10-12] MEDS ORDERED: DILTIAZEM HCL 60 MG TAB PO SCH (09:00)
[2017-10-12] MEDS ORDERED: DO NOT ADM ANY ANTICOAGULANT DRUGS PRN (10:51)
[2017-10-12] MEDS ORDERED: ACETAMINOPHEN/HYDROcodone 325 MG/7.5 MG TAB PO PRN (11:15)
[2017-10-12] MEDS ORDERED: ceFAZolin 2 GM PREMIX 50 ML IV SCH (11:15)
[2017-10-12] MEDS ORDERED: MORPHINE SULFATE 4 MG/ML INJ IV PUSH PRN (11:15)
[2017-10-12] MEDS ORDERED: Post-op Orders (for Pharmacy) XX ONE (11:15)
--- NOTE | 2017-10-12 11:18 | PD.OP ---
cc: Hardy Acharya MD Operative Report Date of Surgery: Oct 12, 2017 Preoperative Diagnosis: Displaced right ankle bimalleolar fracture Postoperative Diagnosis: Procedure: Open reduction internal fixation right ankle bimalleolar fracture, stress exam of syndesmosis Anesthesia: Gen. Surgeon: Hardy Acharya [employer] Director(s): GUY Smith PA-C The surgical procedure was assisted by my physician assistant golf course superintendent. My P.A. presence was necessary throughout this case for the manipulation and positioning of the surgical extremity. My P.A. was assisting me throughout the duration of this procedure. The skill set of a physician assistant golf course superintendent was medically necessary to complete this procedure. During the surgical case the nursing surgical services director was working at the back table and the physician assistant golf course superintendent was directly assisting me. Operation and Findings: Implants used : ITS Plan of activity: Nonweightbearing Patient was seen and evaluated preoperatively and found to have a displaced ankle fracture. Informed consent was obtained after a detailed discussion of risk and benefits of surgery. The operative site was marked. Patient was brought to the OR, placed on the OR table, and given IV sedation and general endotracheal anesthesia. IV antibiotics were given preoperatively. A timeout procedure was performed. The operative leg was prepped with alcohol followed by Hibiclens and draped in the usual sterile fashion. Attention was turned towards the distal fibula. A four-inch incision was made over the distal fibula. The subcutaneous tissue was dissected with Bovie. The fracture site was visualized. The fracture site was cleaned with curets. The fracture was now reduced. The fracture keyed into anatomic alignment. K-wires were used to h old provisional fixation. A lag screw was placed to compress fracture. A plate was selected and contoured to fit the distal fibula. The plate was provisionally held to bone with K-wires. 3.5 cortical screws were used to compress the plate to bone. Multiple screws were placed above and below the fracture. Next attention was turned towards the medial malleolus. The medial malleolus supposed through a 3 cm incision. Saphenous vein was retracted. Fracture was visualized. Fracture was cleaned with curettes. Fracture was now reduced and keyed into anatomic alignment. K wires were used to hold provisional fixation. 2 guidepins for the 4.0 cannulated screws were placed in a retrograde fashion across the fracture. Fluoroscopy was used to confirm guidepin placement. Cannulated drill was placed over the guidepin. 2 appropriate length screws were now placed. Good compression was applied. Fluoroscopy confirmed well aligned fracture with well-placed hardware. Next, attention was turned to the syndesmosis. The syndesmosis was stressed. There was no widening of the syndesmosis with external rotation of the ankle. Incisions were thoroughly irrigated. The subcutaneous tissue was closed with 3- 0 Vicryl and the skin was closed with 3-0 nylon. Sterile dressings were applied. A well molded well-padded splint was applied. The patient was transferred to Recovery in stable condition. Needle and sponge counts were correct. Hardy Acharya MD Oct 12, 2017 11:18
--- NOTE | 2017-10-12 11:47 | MB ---
cc: JAGJIT ALVARADO,MEAGHAN Smyht MD DATE OF CONSULTATION 10/12/2017 DATE OF ADMISSION 10/11/2017 018 REASON FOR CONSULTATION Right ankle fracture. CONSULTING PHYSICIAN Dr. Yancey. HISTORY OF PRESENT ILLNESS Adrianne is a 66-year-old female. 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 She states that she passed out. She got very dizzy and then fell. She had immediate right ankle pain. She was unable to stand or ambulate. She fell backwards. She may have hit her head. She does not clearly recall the entire event. She presented to the emergency room where x-rays revealed a right ankle bimalleolar fracture. She is currently awake and alert on the orthopedic floor. Her only complaint currently is her right ankle. Pain is worse with movement. Pain is improved with rest. PAST MEDICAL HISTORY ILLNESSES 1. Asthma. 2. Glaucoma. 3. Hepatitis. 4. Hypertension. 5. Irregular heart beat. SURGERIES 1. Bilateral breast biopsy. 2. Oophorectomy. MEDICATIONS 1. ProAir. 2. Diltiazem. 3. Mupirocin. 4. Amlodipine. 5. Doxazosin. 6. Lovastatin. 7. Vitamin-B12. 8. Vitamin-D. 9. Lumigan eye drops. ALLERGIES 1. BENAZEPRIL. 2. CAPTOPRIL. 3. FOSINOPRIL. 4. LISINOPRIL. 5. QUINAPRIL. 6. PHENOBARBITAL. FAMILY HISTORY Positive for COPD in her mother, coronary artery disease in her mother, and in her father. SOCIAL HISTORY The patient denies alcohol, tobacco or drug use. She works as a preliminary school psychologist. REVIEW OF SYSTEMS The patient denies headache, visual changes, neck pain, chest pain, shortness of breath, abdominal pain, nausea, vomiting or recent weight loss, fever, chills, nausea, vomiting, or numbness or tingling of extremities. She did have an episode of vertigo and syncope yesterday. She complains of right ankle pain. PHYSICAL EXAMINATION GENERAL: The patient is a well-developed, well-nourished 66-year-old female in no acute distress. She is awake and alert. She is alert and oriented x3. VITAL SIGNS: Temperature 98.8, pulse 75, respirations 18, blood pressure 187/82. O2 sat is 98% on room air. HEAD: The patient is normocephalic. Pupils are equal. NECK: Soft and nontender. Trachea is midline. ABDOMEN: Soft, nontender, nondistended. EXTREMITIES: Examination of bilateral upper extremities reveals no pain with shoulder, elbow or wrist motion. She has intact sensation in all fingers. She has good capillary refill in all fingers. Skin is intact in both hands. Radial pulses are palpable. Digital Strategy Director strength is +5 bilaterally. Examination of left leg reveals no pain with hip, knee or ankle motion. Skin is intact. Dorsalis pedis pulse is palpable. Sensation is intact. Examination of right leg reveals no pain with hip or knee motion. She is diffusely tender around the ankle. There is mild swelling present. She has pain with ankle motion. Dorsalis pedis pulse is palpable. Sensation is intact in the right foot. X-RAYS X-rays of right ankle were reviewed. X-rays reveal a displaced right ankle bimalleolar fracture. IMPRESSION 1. Dizziness and syncopal episode yesterday. 2. Right ankle bimalleolar fracture. 3. Hypertension. PLAN The treatment options were discussed with the patient. At this point I would recommend open reduction, internal fixation of right ankle. The risks of surgery include bleeding, infection, injuries to arteries, nerves and blood vessels, nonunion, malunion, painful hardware, wound infection, as well as medical complications including blood clot, stroke, heart attack and . All questions were answered. I will plan on surgery today. A mid-level provider in my office, nurse practitioner or PA, may see this patient on a follow-up basis and continue to implement the objective of this plan including: Starting or adjusting medications, injections of muscle, tendon, bursa or joints, cast application, orthotic or brace application, physical therapy, further radiographic studies including x-ray, MRI, CT, ultrasounds or bone scan, vascular studies, neurologic studies, or other specialist consultations, and proceeding with surgical management as appropriate. MD NICOLA Palmer/EDITH /11:17 AM /11:30 AM
[2017-10-12] MEDS ORDERED: *morphine SULFATE 10 MG/ML PERIprocedure ONLY ONE (11:58)
[2017-10-12] MEDS ORDERED: ONDANSETRON HCL 4 MG/2 ML VIAL IV ONE (12:00)
[2017-10-12] MEDS ORDERED: LIDOCAINE HCL 1% PF 5 ML SYRINGE OTHER ONE (12:00)
[2017-10-12] MEDS ORDERED: DEXAMETHASONE SOD PHOS 4 MG/ML VIAL IV ONE (12:00)
[2017-10-12] MEDS ORDERED: STERILE WATER FOR INJECTION 20 ML VIAL IV ONE (12:00)
[2017-10-12] MEDS ORDERED: PROPOFOL 200 MG/20 ML AMP IV ONE (12:00)
[2017-10-12] MEDS: DOCUSATE SODIUM 50 MG/SENNA 8.6 MG TAB PO SCH ×2 (13:04→21:17)
[2017-10-12] MEDS: PRAVASTATIN SOD 20 MG TAB PO SCH (13:05)
[2017-10-12] MEDS: DILTIAZEM HCL 60 MG TAB PO SCH ×3 (13:05→21:18)
--- NOTE | 2017-10-12 15:17 | RADRPT ---
EXAM DATE/TIME: 10/12/2017 11:06 [facility] COMPARISON: No previous studies available for comparison. INDICATIONS : Right ankle open reduction internal fixation. MEDICAL HISTORY : Asthma, Gout, Breast Tumors. Diabetes. SURGICAL HISTORY : Hysterectomy. Breast Bx. ENCOUNTER: Subsequent ACUITY: 1 day PAIN SCORE: Non-responsive. LOCATION: Right ankle FINDINGS: 3 fluoroscopic images of the right ankle. Plate and screw fixation of the distal fibula. There is christiane tomic alignment with well-positioned hardware. Compression screw fixation of the medial malleolar fra cture. Hardware appears well-positioned and there is near-anatomic alignment. CONCLUSION: 1. Status post right ankle ORIF, as above. Bandar James MD on October 12, 2017 at 15:14 Board Certified Radiologist. This report was verified electronically.
--- NOTE | 2017-10-12 15:39 | HHI.PR ---
Subjective Remarks Follow-up syncope, right ankle fracture. The patient had surgery today. States that pain control is "okay". Denies lightheadedness or dizziness at this time. States that she does not know why she passed out. Objective Vitals Vital Signs Date Time Temp Pulse Resp B/P (MAP) Pulse Ox O2 Delivery O2 Flow Rate FiO2 10/12/17 12:39 97.8 74 18 184/77 (112) 96 10/12/17 12:25 98.1 74 14 160/74 (102) 96 Room Air 10/12/17 12:15 75 14 163/75 (104) 100 Room Air 10/12/17 12:00 73 14 160/72 (101) 100 Room Air 10/12/17 11:50 98.1 91 14 164/85 (111) 100 Nasal Cannula 2 10/12/17 08:00 98.8 75 18 187/82 (117) 98 10/12/17 04:04 98.1 90 18 157/81 (106) 97 10/12/17 00:17 99.4 103 18 193/75 (114) 97 10/11/17 20:40 99.0 88 18 181/81 (114) 98 10/11/17 19:44 10/11/17 16:56 98 Room Air I/O 10/11/17 10/11/17 10/11/17 10/12/17 10/12/17 10/12/17 07:00 15:00 23:00 07:00 15:00 23:00 Intake Total 600 ml 0 ml 900 ml Output Total 25 ml Balance 600 ml 0 ml 875 ml Intake Oral 600 ml 0 ml Other 900 ml Output Estimated Blood Loss 25 ml # Voids 1 2 1 # Bowel Movements 0 0 Result Diagram: 10/11/17 1650 10/12/17 0621 Imaging Last Impressions Ankle X-Ray 10/12/17 0000 Signed Impressions: Service Date/Time: Thursday, October 12, 2017 11:06 - CONCLUSION: 1. Status post right ankle ORIF, as above. Bandar James MD Head CT 10/11/17 1601 Signed Impressions: Service Date/Time: October 16:51 - CONCLUSION: Negative noncontrast CT Emiliano Bradshaw MD Chest X-Ray 10/11/17 1601 Signed Impressions: Service Date/Time: October 16:19 - CONCLUSION: No acute disease. Emiliano Bradshaw MD Objective Remarks General: No acute distress. Heart: Regular rate and rhythm. 2/6 systolic murmur. Lungs: Clear to auscultation bilaterally. No wheezes, rales, or rhonchi. Breathing is nonlabored. Abdomen: Soft, nontender, nondistended. Extremities: No lower extremity edema. Right lower leg bandaged and elevated. Psych: Alert and oriented. Procedures 10/12/17 open reduction internal fixation right ankle bimalleolar fracture, stress exam of syndesmosis Urinary Catheter: No Vascular Central Line Catheter: No A/P Problem List: (1) Syncope and collapse ICD Code: R55 - Syncope and collapse Status: Acute (2) Closed bimalleolar fracture of right ankle ICD Code: S82.841A - Displaced bimalleolar fracture of right lower leg, initial encounter for closed fracture Status: Acute Assessment and Plan 1. Syncopal episode: Cardiac enzymes are normal. EKG shows sinus rhythm. Carotid artery ultrasound and 2-D echocardiogram ordered. Monitor on telemetry. 2. Bimalleolar fracture, right ankle: Appreciate orthopedic surgery management. Status post ORIF. Continue pain control. 3. Hypertension: Blood pressure is elevated. Continue diltiazem. 4. Acute kidney injury superimposed on chronic kidney disease stage IV: Monitor BUN and creatinine. Continue IV fluids. 5. DVT prophylaxis: SCDs, MARCELLUS hose. Discharge Planning Pending further workup of syncopal episode. Problem Qualifiers (1) Closed bimalleolar fracture of right ankle: Qualified Codes: S82.841A - Displaced bimalleolar fracture of right lower leg, initial encounter for closed fracture Berny Handy MD Oct 12, 2017 15:39
--- NOTE | 2017-10-12 16:36 | ECHRPT ---
Indication: murm CONCLUSIONS Normal left ventricular size. No mitral valve regurgitation. No aortic valve regurgitation. No aortic valve stenosis. There is trace tricuspid valve regurgitation. The estimated pulmonary arterial pressure is 50.4 mmHg. BP: / HR: Rhythm: MEASUREMENTS (Male / Female) Normal Values Technical Quality:Fair 2D ECHO LV Diastolic Diameter PLAX 4.2 cm 4.2 - 5.9 / 3.9 - 5.3 cm LV Systolic Diameter PLAX 3.0 cm IVS Diastolic Thickness 2.1 cm 0.6 - 1.0 / 0.6 - 0.9 cm LVPW Diastolic Thickness 0.9 cm 0.6 - 1.0 / 0.6 - 0.9 cm LV Relative Wall Thickness 0.7 RV Internal Dim ED PLAX 2.3 cm M-MODE Aortic Root Diameter MM 3.0 cm LA Systolic Diameter MM 3.7 cm LA Ao Ratio MM 1.2 AV Cusp Separation MM 1.9 cm DOPPLER Mitral E Point Velocity 62.2 cm/s Mitral A Point Velocity 95.8 cm/s Mitral E to A Ratio 0.6 LV E' Lateral Velocity 7.7 cm/s Mitral E to LV E' Lateral Ratio 8.1 LV E' Septal Velocity 7.3 cm/s Mitral E to LV E' Septal Ratio 8.5 TR Peak Velocity 318.0 cm/s TR Peak Gradient 40.4 mmHg Right Atrial Pressure 10.0 mmHg Pulmonary Artery Systolic Pressu 50.4 mmHg Right Ventricular Systolic Press 50.4 mmHg FINDINGS LEFT VENTRICLE Normal left ventricular size. The left ventricular systolic function is normal with an estimated ejection fraction in the range of 60-65%. RIGHT VENTRICLE Normal right ventricular size and systolic function. LEFT ATRIUM The left atrial size is normal. RIGHT ATRIUM The right atrial size is normal. ATRIAL SEPTUM Normal atrial septal thickness without atrial level shunting by limited color doppler interrogation. AORTA The aortic root and proximal ascending aorta are normal in size on limited imaging. MITRAL VALVE Structurally normal mitral valve. No mitral valve regurgitation. AORTIC VALVE Trileaflet aortic valve. No aortic valve regurgitation. No aortic valve stenosis. TRICUSPID VALVE Structurally normal tricuspid valve. There is trace tricuspid valve regurgitation. The estimated pulmonary arterial pressure is 50.4 mmHg. PULMONARY VALVE No pulmonary valve regurgitation or stenosis. VESSELS The inferior vena cava is normal in size. PERICARDIUM No pericardial effusion. Warren Whelan MD, FACC (Electronically Signed) Final Date:12 October 2017 16:35
--- NOTE | 2017-10-12 16:46 | RADRPT ---
EXAM DATE/TIME: 10/12/2017 16:05 [facility] COMPARISON: No previous studies available for comparison. INDICATIONS : Syncope. MEDICAL HISTORY : . Hypertension. Hepatitis B. Glaucoma. Asthma. Uterine fibroids. Osteoarthritis. SURGICAL HISTORY : Uterine myomectomy/polypectomy. Breast biopsy. ENCOUNTER: Initial ACUITY: 1 day PAIN SCORE: 0/10 LOCATION: Bilateral neck PEAK SYSTOLIC VELOCITIES (cm/sec): ICA/CCA RATIO: Right: 1.0 Left: 0.8 ICA: Right: 102.8 Left: 97.9 CCA: Right: 97.9 Left: 118.9 ECA: Right: 90.1 Left: 104.3 VERTEBRAL: Right: 80.1 antegrade Left: 81.8 antegrade Elevated flow velocities and ICA/CCA ratios have been found to correlate with increased degrees of vessel stenosis, calculated as percentage of diameter relative to a normal segment of distal ICA/CCA FINDINGS: RIGHT CAROTID: No significant stenosis is visualized. The waveforms are within normal limits. LEFT CAROTID: No significant stenosis is visualized. The waveforms are within normal limits. VERTEBRAL ARTERIES: Antegrade flow is seen in both vertebral arteries. MISCELLANEOUS: None. CONCLUSION: There is no hemodynamically significant stenosis. Lucho Bernard MD FACR on October 12, 2017 at 16:43 Board Certified Radiologist. This report was verified electronically.
--- NOTE | 2017-10-12 16:48 | EKG ---
Date Performed: 10/11/2017 Time Performed: 16:39:18 PTAGE: 66 years EKG: Sinus rhythm NONSPECIFIC T-WAVE ABNORMALITY BORDERLINE ECG PREVIOUS TRACING : 05/09/2016 12.03 Since previous tracing, no significant change noted DOCTOR: Clive Malcolm Interpretating Date/Time 10/12/2017 16:48:02
[2017-10-12 18:01] LABS: AUTOMATED NEUTROPHIL # 10.9 TH/MM3 (1.8-7.7); HEMATOCRIT 28.3 % (35.0-46.0); HEMOGLOBIN 9.6 GM/DL (11.6-15.3); LYMPH % 4.7 % (9.0-44.0); LYMPHOCYTE # 0.5 TH/MM3 (1.0-4.8); MEAN CELL VOLUME 92.9 FL (80.0-100.0); MEAN CORPUSCULAR HEMOGLOBIN 31.6 PG (27.0-34.0); MEAN PLATELET VOLUME 9.5 FL (7.0-11.0); MONO % 1.1 % (0.0-8.0); MONOCYTE # 0.1 TH/MM3 (0-0.9); NEUT % 94.2 % (16.0-70.0); PLATELET COUNT 167 TH/MM3 (150-450); RED BLOOD COUNT 3.04 MIL/MM3 (4.00-5.30); RED CELL DISTRIBUTION WIDTH 12.8 % (11.6-17.2); WHITE BLOOD COUNT 11.6 TH/MM3 (4.0-11.0)
[2017-10-13 00:15] VITALS: BP 187/81; PULSE 93; RESP 17; TEMP 97.2; O2SAT 99
[2017-10-13] MEDS: SODIUM CHLOR 0.9% 1000 ML INJ 1,000 ML IV SCH ×3 (02:00→22:00)
[2017-10-13] MEDS: ACETAMINOPHEN/HYDROcodone 325 MG/7.5 MG TAB PO PRN ×4 (02:47→22:27)
[2017-10-13 04:20] VITALS: BP 172/80; PULSE 94; RESP 17; TEMP 98.8; O2SAT 99
--- NOTE | 2017-10-13 07:48 | PD.ORT.PN ---
Subjective Subjective Remarks Patient comfortable. Pain controlled. Objective Vitals Vital Signs Date Time Temp Pulse Resp B/P (MAP) Pulse Ox O2 Delivery O2 Flow Rate FiO2 10/13/17 04:20 98.8 94 17 172/80 (110) 99 10/13/17 00:15 97.2 93 17 187/81 (116) 99 10/12/17 20:10 97.5 95 17 160/85 (110) 99 10/12/17 16:46 94 21 10/12/17 16:00 97.0 63 18 154/78 (103) 94 10/12/17 12:39 97.8 74 18 184/77 (112) 96 10/12/17 12:25 98.1 74 14 160/74 (102) 96 Room Air 10/12/17 12:15 75 14 163/75 (104) 100 Room Air 10/12/17 12:00 73 14 160/72 (101) 100 Room Air 10/12/17 11:50 98.1 91 14 164/85 (111) 100 Nasal Cannula 2 10/12/17 08:00 98.8 75 18 187/82 (117) 98 I/O 10/12/17 10/12/17 10/12/17 10/13/17 10/13/17 10/13/17 07:00 15:00 23:00 07:00 15:00 23:00 Intake Total 0 ml 1260 ml 360 ml 240 ml Output Total 25 ml Balance 0 ml 1235 ml 360 ml 240 ml Intake Oral 0 ml 360 ml 360 ml 240 ml Other 900 ml Output Estimated Blood Loss 25 ml # Voids 2 3 1 3 # Bowel Movements 0 0 0 0 Result Diagram: 10/12/17 1642 10/12/17 0621 Imaging Last [address] 10/11/17 1601 Signed Impressions: Service Date/Time: October 16:51 - CONCLUSION: Negative noncontrast CT Emiliano Bradshaw MD Chest X-Ray 10/11/17 1601 Signed Impressions: Service Date/Time: October 16:19 - CONCLUSION: No acute disease. Emiliano Bradshaw MD Ankle X-Ray 10/11/17 1601 Signed Impressions: Service Date/Time: October 16:22 - CONCLUSION: 1. Bimalleolar fracture, as above. Bandar James MD Objective Remarks RLE: +posterior leg splint intact. good movement of toes NVI Assessment & Plan Assessment and Plan 1) Right Bimalleolar Ankle Fx -POD 1 -NWB -maintain splint -elevate -CM for discharge planning - anticipating home -patient requesting a knee scooter -scripts on chart -orthopedically stable for discharge. will need medical clearance. -f/u with [facility] or [facility] in 2 weeks Robe David Oct 13, 2017 07:48
[2017-10-13 08:00] VITALS: BP 159/77; PULSE 76; RESP 18; TEMP 97.3; O2SAT 96
[2017-10-13] MEDS: PRAVASTATIN SOD 20 MG TAB PO SCH (09:35)
[2017-10-13] MEDS: DOCUSATE SODIUM 50 MG/SENNA 8.6 MG TAB PO SCH ×2 (09:35→22:29)
[2017-10-13] MEDS: DILTIAZEM HCL 60 MG TAB PO SCH ×4 (09:35→22:28)
[2017-10-13] MEDS: SODIUM CHLORIDE 0.9% FLUSH 10 ML FLUSH IV FLUSH SCH ×2 (09:40→21:00)
[2017-10-13 12:16] VITALS: BP 161/61; PULSE 92; RESP 17; TEMP 96.9; O2SAT 97
--- NOTE | 2017-10-13 14:40 | HHI.PR ---
Subjective Remarks Patient seen and examined this am. BP is elevated. Patient lives alone. She is very worried about going home without knowing what happened. This has never happened to her before. She reports feeling dizzing and that something was not right, she reports the next thing she remembers is waking up on the floor. Objective Vital Signs Date Time Temp Pulse Resp B/P (MAP) Pulse Ox O2 Delivery O2 Flow Rate FiO2 10/13/17 12:16 96.9 92 17 161/61 (94) 97 10/13/17 08:00 97.3 76 18 159/77 (104) 96 10/13/17 04:20 98.8 94 17 172/80 (110) 99 10/13/17 00:15 97.2 93 17 187/81 (116) 99 10/12/17 20:10 97.5 95 17 160/85 (110) 99 10/12/17 16:46 94 21 10/12/17 16:00 97.0 63 18 154/78 (103) 94 I/O 10/12/17 10/12/17 10/12/17 10/13/17 10/13/17 10/13/17 07:00 15:00 23:00 07:00 15:00 23:00 Intake Total 0 ml 1260 ml 360 ml 240 ml Output Total 25 ml Balance 0 ml 1235 ml 360 ml 240 ml Intake Oral 0 ml 360 ml 360 ml 240 ml Other 900 ml Output Estimated Blood Loss 25 ml # Voids 2 3 1 3 # Bowel Movements 0 0 0 0 Result Diagram: 10/12/17 1642 10/12/17 0621 Imaging Last Impressions Carotid Artery Ultrasound 10/12/17 0000 Signed Impressions: Service Date/Time: Thursday, October 12, 2017 16:05 - CONCLUSION: There is no hemodynamically significant stenosis. Lucho Bernard MD FACR Ankle X-Ray 10/12/17 0000 Signed Impressions: Service Date/Time: Thursday, October 12, 2017 11:06 - CONCLUSION: 1. Status post right ankle ORIF, as above. Bandar James MD Head CT 10/11/17 1601 Signed Impressions: Service Date/Time: October 16:51 - CONCLUSION: Negative noncontrast CT Emiliano Bradshaw MD Chest X-Ray 10/11/17 1601 Signed Impressions: Service Date/Time: October 16:19 - CONCLUSION: No acute disease. Emiliano Bradshaw MD Objective Remarks GENERAL: well appearing nad SKIN: Warm and dry. HEAD: Normocephalic. EYES: No scleral icterus. No injection or drainage. NECK: Supple, trachea midline. No JVD or lymphadenopathy. CARDIOVASCULAR: Regular rate and rhythm + murmurs heard over aortic and pulmonic valve RESPIRATORY: Breath sounds equal bilaterally. No accessory muscle use. GASTROINTESTINAL: Abdomen soft, non-tender, nondistended. MUSCULOSKELETAL: No cyanosis, or edema. A/P Problem List: (1) Syncope and collapse ICD Code: R55 - Syncope and collapse Status: Acute (2) Closed bimalleolar fracture of right ankle ICD Code: S82.841A - Displaced bimalleolar fracture of right lower leg, initial encounter for closed fracture Status: Acute (3) Hypertension ICD Code: I10 - Essential (primary) hypertension Status: Acute (4) Obesity ICD Code: E66.9 - Obesity Status: Acute Assessment and Plan 66 yo with syncope episode that resulted in right ankle fracture Syncopal episode: Cardiac enzymes are normal. EKG shows sinus rhythm. Carotid artery ultrasound no significant stenosis and 2-D echocardiogram EF 60% no abnormalities noted. Monitor on telemetry. - cardiac workup has been negative, because of the loss of bowel function will consult neuro and see if a seizure workup is needed Bimalleolar fracture, right ankle: Appreciate orthopedic surgery management. Status post ORIF. Continue pain control. Cleared by ortho for discharge. Hypertension: Blood pressure is elevated. Continue diltiazem. Resumed amlodipine, will titrate up as needed. Acute kidney injury superimposed on chronic kidney disease stage IV: Monitor BUN and creatinine. Continue IV fluids. DVT prophylaxis: SCDs, MARCELLUS newman. Discharge Planning Cleared by ortho for d/c Discussed continuing syncopal workup as an outpatient, she does not feel comfortable given she lives alone Will consult neuro Patient will see if she can have someone come stay and take care of her, wont know until sunday or sunday Problem Qualifiers (1) Closed bimalleolar fracture of right ankle: Qualified Codes: S82.841A - Displaced bimalleolar fracture of right lower leg, initial encounter for closed fracture Nhi Ko MD Oct 13, 2017 14:40
[2017-10-13 16:00] VITALS: BP 158/74; PULSE 81; RESP 18; TEMP 97.1; O2SAT 98
[2017-10-13 20:00] VITALS: BP 155/72; PULSE 78; PULSE 81; RESP 16; TEMP 97.9; O2SAT 96
[2017-10-13] MEDS: LATANOPROST 0.005% OPHT SOLN 2.5 ML BTL EACH EYE SCH (22:27)
[2017-10-14] VITALS: BP 157/77; PULSE 80; RESP 16; TEMP 97.9; O2SAT 99
[2017-10-14] MEDS: ACETAMINOPHEN/HYDROcodone 325 MG/7.5 MG TAB PO PRN ×4 (03:14→23:40)
[2017-10-14 04:00] VITALS: BP 149/74; PULSE 74; RESP 16; TEMP 97.9; O2SAT 98
[2017-10-14 08:00] VITALS: BP 158/82; PULSE 75; RESP 18; TEMP 98.1; O2SAT 98
[2017-10-14] MEDS: SODIUM CHLOR 0.9% 1000 ML INJ 1,000 ML IV SCH ×2 (08:00→18:00)
[2017-10-14] MEDS: DOCUSATE SODIUM 50 MG/SENNA 8.6 MG TAB PO SCH ×2 (08:53→20:50)
[2017-10-14] MEDS: DILTIAZEM HCL 60 MG TAB PO SCH ×4 (08:53→20:50)
[2017-10-14] MEDS: SODIUM CHLORIDE 0.9% FLUSH 10 ML FLUSH IV FLUSH SCH ×2 (08:53→20:50)
[2017-10-14] MEDS: PRAVASTATIN SOD 20 MG TAB PO SCH (08:53)
--- NOTE | 2017-10-14 11:15 | PD.ORT.PN ---
Subjective Subjective Remarks Ankle comfortable EEG is pending Objective Vitals Vital Signs Date Time Temp Pulse Resp B/P (MAP) Pulse Ox O2 Delivery O2 Flow Rate FiO2 10/14/17 08:00 98.1 75 18 158/82 (107) 98 10/14/17 04:00 97.9 74 16 149/74 (99) 98 10/14/17 00:00 97.9 80 16 157/77 (103) 99 10/13/17 20:00 78 10/13/17 20:00 97.9 81 16 155/72 (99) 96 10/13/17 16:00 97.1 81 18 158/74 (102) 98 10/13/17 12:16 96.9 92 17 161/61 (94) 97 I/O 10/13/17 10/13/17 10/13/17 10/14/17 10/14/17 10/14/17 07:00 15:00 23:00 07:00 15:00 23:00 Intake Total 240 ml 720 ml 1400 ml Balance 240 ml 720 ml 1400 ml Intake Oral 240 ml 720 ml 1400 ml # Voids 3 6 6 # Bowel Movements 0 0 Result Diagram: 10/12/17 1642 10/12/17 0621 Imaging Last [address] 10/11/17 1601 Signed Impressions: Service Date/Time: October 16:51 - CONCLUSION: Negative noncontrast CT Emiliano Bradshaw MD Chest X-Ray 10/11/17 1601 Signed Impressions: Service Date/Time: October 16:19 - CONCLUSION: No acute disease. Emiliano Bradshaw MD Ankle X-Ray 10/11/17 1601 Signed Impressions: Service Date/Time: October 16:22 - CONCLUSION: 1. Bimalleolar fracture, as above. Bandar James MD Objective Remarks RLE: +posterior leg splint intact. good movement of toes NVI Assessment & Plan Assessment and Plan 1) Right Bimalleolar Ankle Fx -POD 2 -NWB -maintain splint -elevate -CM for discharge planning - anticipating home -patient requesting a knee scooter -scripts on chart -orthopedically stable for discharge. will need medical clearance. -f/u with [facility] or [facility] in 2 weeks Won Mendez MD Oct 14, 2017 11:15
[2017-10-14 12:00] VITALS: BP 175/78; PULSE 87; RESP 17; TEMP 97.4; O2SAT 99
--- NOTE | 2017-10-14 13:28 | HHI.PR ---
Subjective Remarks Patient seen and examined this am. BP is elevated. Patient lives alone. BP elevated. Objective Vital Signs Date Time Temp Pulse Resp B/P (MAP) Pulse Ox O2 Delivery O2 Flow Rate FiO2 10/14/17 12:00 97.4 87 17 175/78 (110) 99 10/14/17 08:00 98.1 75 18 158/82 (107) 98 10/14/17 04:00 97.9 74 16 149/74 (99) 98 10/14/17 00:00 97.9 80 16 157/77 (103) 99 10/13/17 20:00 78 10/13/17 20:00 97.9 81 16 155/72 (99) 96 10/13/17 16:00 97.1 81 18 158/74 (102) 98 I/O 10/13/17 10/13/17 10/13/17 10/14/17 10/14/17 10/14/17 07:00 15:00 23:00 07:00 15:00 23:00 Intake Total 240 ml 720 ml 1400 ml Balance 240 ml 720 ml 1400 ml Intake Oral 240 ml 720 ml 1400 ml # Voids 3 6 6 # Bowel Movements 0 0 Result Diagram: 10/12/17 1642 10/12/17 0621 Imaging Last Impressions Carotid Artery Ultrasound 10/12/17 0000 Signed Impressions: Service Date/Time: Thursday, October 12, 2017 16:05 - CONCLUSION: There is no hemodynamically significant stenosis. Lucho Bernard MD FACR Ankle X-Ray 10/12/17 0000 Signed Impressions: Service Date/Time: Thursday, October 12, 2017 11:06 - CONCLUSION: 1. Status post right ankle ORIF, as above. Bandar James MD Head CT 10/11/17 1601 Signed Impressions: Service Date/Time: October 16:51 - CONCLUSION: Negative noncontrast CT Emiliano Bradshaw MD Chest X-Ray 10/11/17 1601 Signed Impressions: Service Date/Time: October 16:19 - CONCLUSION: No acute disease. Emiliano Bradshaw MD Objective Remarks GENERAL: well appearing nad SKIN: Warm and dry. HEAD: Normocephalic. EYES: No scleral icterus. No injection or drainage. NECK: Supple, trachea midline. No JVD or lymphadenopathy. CARDIOVASCULAR: Regular rate and rhythm + murmurs heard over aortic and pulmonic valve RESPIRATORY: Breath sounds equal bilaterally. No accessory muscle use. GASTROINTESTINAL: Abdomen soft, non-tender, nondistended. MUSCULOSKELETAL: No cyanosis, or edema. A/P Problem List: (1) Syncope and collapse ICD Code: R55 - Syncope and collapse Status: Acute (2) Closed bimalleolar fracture of right ankle ICD Code: S82.841A - Displaced bimalleolar fracture of right lower leg, initial encounter for closed fracture Status: Acute (3) Hypertension ICD Code: I10 - Essential (primary) hypertension Status: Acute (4) Obesity ICD Code: E66.9 - Obesity Status: Acute Assessment and Plan 66 yo with syncope episode that resulted in right ankle fracture Syncopal episode: Cardiac enzymes are normal. EKG shows sinus rhythm. Carotid artery ultrasound no significant stenosis and 2-D echocardiogram EF 60% no abnormalities noted. Monitor on telemetry. - cardiac workup has been negative, because of the loss of bowel function will consult neuro and see if a seizure workup is needed Bimalleolar fracture, right ankle: Appreciate orthopedic surgery management. Status post ORIF. Continue pain control. Cleared by ortho for discharge. Hypertension: Blood pressure is elevated. Continue diltiazem. Resumed amlodipine, will increase dose. Acute kidney injury superimposed on chronic kidney disease stage IV: Monitor BUN and creatinine. Continue IV fluids. DVT prophylaxis: SCDs, MARCELLUS newman. Discharge Planning Cleared by ortho for d/c Discussed continuing syncopal workup as an outpatient, she does not feel comfortable given she lives alone Neuro clearance pending Problem Qualifiers (1) Closed bimalleolar fracture of right ankle: Qualified Codes: S82.841A - Displaced bimalleolar fracture of right lower leg, initial encounter for closed fracture Nhi Ko MD Oct 14, 2017 13:28
[2017-10-14 16:00] VITALS: BP 167/79; PULSE 84; RESP 18; TEMP 98.8; O2SAT 98
[2017-10-14 20:00] VITALS: BP 155/81; PULSE 74; PULSE 84; RESP 18; TEMP 98.5; O2SAT 99
[2017-10-14] MEDS: LATANOPROST 0.005% OPHT SOLN 2.5 ML BTL EACH EYE SCH (20:51)
[2017-10-15] VITALS: BP 168/77; PULSE 81; PULSE 85; RESP 18; TEMP 98.5; O2SAT 99
[2017-10-15] MEDS: SODIUM CHLOR 0.9% 1000 ML INJ 1,000 ML IV SCH ×2 (01:55→14:00)
[2017-10-15 04:00] VITALS: BP 172/83; PULSE 81; PULSE 86; RESP 16; TEMP 98.4; O2SAT 99
[2017-10-15] MEDS: ACETAMINOPHEN/HYDROcodone 325 MG/7.5 MG TAB PO PRN ×3 (05:28→17:39)
--- NOTE | 2017-10-15 05:31 | MG ---
cc: AYLA REN Lab No: Date: 10/14/2017 Age: 66 Sex: F Race: DATE OF 1950 MEDICAL HISTORY Episode of lightheadedness. Thought she had generalized weakness. Syncopal episode, hit back of the head. History of glaucoma, hypertension, asthma, dyspnea. MEDICATIONS 1. Norvasc. 2. Lapine. 3. Cardizem. DESCRIPTION The background activity is 9-10 Hz alpha located posteriorly, attenuates to eye opening. During the recording there is excessive movement artifact. Hyperventilation did not make a change in the background activity of the EEG. Photic stimulation did not elicit a driving response. When recording those, drop out of the background rhythm, replaced by theta activity with the appearance of sleep spindles, K-complexes and transition of the patient to Stage II sleep. There were no electrographic seizures or epileptiform discharges noted. INTERPRETATION This is a normal awake, drowsy and asleep EEG. There was excessive movement artifact. There were no electrographic seizures or epileptiform discharges noted during the recording. Clinical correlation is recommended. Ayla Ren MD RGO/TIM /12:47 AM /5:20 AM [id number]
--- NOTE | 2017-10-15 06:47 | PD.ORT.PN ---
Subjective Subjective Remarks Resting comfortably and progressing well with physical therapy Objective Vitals Vital Signs Date Time Temp Pulse Resp B/P (MAP) Pulse Ox O2 Delivery O2 Flow Rate FiO2 10/15/17 04:00 86 10/15/17 04:00 98.4 81 16 172/83 (112) 99 10/15/17 00:00 85 10/15/17 00:00 98.5 81 18 168/77 (107) 99 10/14/17 20:00 74 10/14/17 20:00 98.5 84 18 155/81 (105) 99 10/14/17 16:00 98.8 84 18 167/79 (108) 98 10/14/17 12:00 97.4 87 17 175/78 (110) 99 10/14/17 08:00 98.1 75 18 158/82 (107) 98 I/O 10/14/17 10/14/17 10/14/17 10/15/17 10/15/17 10/15/17 07:00 15:00 23:00 07:00 15:00 23:00 Intake Total 1400 ml 2120 ml 240 ml Output Total 5 ml Balance 1400 ml 2115 ml 240 ml Intake Oral 1400 ml 2120 ml 240 ml Output Urine Total 5 ml # Voids 6 3 3 # Bowel Movements 0 0 Result Diagram: 10/12/17 1642 10/12/17 0621 Imaging Last [address] 10/11/17 1601 Signed Impressions: Service Date/Time: October 16:51 - CONCLUSION: Negative noncontrast CT Emiliano Bradshaw MD Chest X-Ray 10/11/17 1601 Signed Impressions: Service Date/Time: October 16:19 - CONCLUSION: No acute disease. Emiliano Bradshaw MD Ankle X-Ray 10/11/17 1601 Signed Impressions: Service Date/Time: October 16:22 - CONCLUSION: 1. Bimalleolar fracture, as above. Bandar James MD Objective Remarks RLE: +posterior leg splint intact. good movement of toes NVI Assessment & Plan Assessment and Plan 1) Right Bimalleolar Ankle Fx -POD 3 -NWB -maintain splint -elevate -CM for discharge planning - anticipating home -patient requesting a knee scooter -scripts on chart -orthopedically stable for discharge. will need medical clearance. -f/u with [facility] or [facility] in 2 weeks Emiliano Dalton Jr. Oct 15, 2017 06:47
[2017-10-15 08:00] VITALS: BP 200/89; PULSE 104; RESP 19; TEMP 97; O2SAT 99
[2017-10-15] MEDS: PRAVASTATIN SOD 20 MG TAB PO SCH (08:58)
[2017-10-15] MEDS: DILTIAZEM HCL 60 MG TAB PO SCH ×4 (08:58→17:39)
[2017-10-15] MEDS: DOCUSATE SODIUM 50 MG/SENNA 8.6 MG TAB PO SCH (08:58)
[2017-10-15] MEDS: SODIUM CHLORIDE 0.9% FLUSH 10 ML FLUSH IV FLUSH SCH (08:58)
[2017-10-15 09:18] VITALS: BP 169/74
[2017-10-15] MEDS ORDERED: ISOSORBIDE DINITRATE 40 MG SUSTAINED RELEASE TAB PO ONE (10:00)
[2017-10-15] MEDS ORDERED: hydrALAZINE HCL 50 MG TAB PO ONE (10:00)
[2017-10-15 12:00] VITALS: BP 177/81; PULSE 95; RESP 18; TEMP 96.9; O2SAT 99
[2017-10-15] MEDS ORDERED: hydrALAZINE HCL 50 MG TAB PO SCH (14:00)
[2017-10-15] MEDS ORDERED: HYDR-3800 PO (14:59)
[2017-10-15] MEDS ORDERED: ISOR40CR PO (14:59)
--- NOTE | 2017-10-15 15:04 | HHI.PR ---
Subjective Remarks Patient seen this morning around 10 AM. Says she is feeling all right. Denies any chest pain or shortness of breath. She reports dizziness prior to falling. Denies any lightheadedness or palpitations. Objective Vital Signs Date Time Temp Pulse Resp B/P (MAP) Pulse Ox O2 Delivery O2 Flow Rate FiO2 10/15/17 08:00 97.0 104 19 200/89 (126) 99 10/15/17 04:00 86 10/15/17 04:00 98.4 81 16 172/83 (112) 99 10/15/17 00:00 85 10/15/17 00:00 98.5 81 18 168/77 (107) 99 10/14/17 20:00 74 10/14/17 20:00 98.5 84 18 155/81 (105) 99 10/14/17 16:00 98.8 84 18 167/79 (108) 98 I/O 10/14/17 10/14/17 10/14/17 10/15/17 10/15/17 10/15/17 07:00 15:00 23:00 07:00 15:00 23:00 Intake Total 1400 ml 2120 ml 240 ml Output Total 5 ml Balance 1400 ml 2115 ml 240 ml Intake Oral 1400 ml 2120 ml 240 ml Output Urine Total 5 ml # Voids 6 3 3 # Bowel Movements 0 0 Result Diagram: 10/12/17 1642 10/12/17 0621 Objective Remarks GENERAL: Patient sitting up in bed. Appears comfortable. Alert and oriented 3. SKIN: Warm and dry. HEAD: Normocephalic. EYES: No scleral icterus. No injection or drainage. NECK: Supple, trachea midline. No JVD. CARDIOVASCULAR: Regular rate and rhythm without murmurs, gallops, or rubs. RESPIRATORY: Breath sounds equal bilaterally. No accessory muscle use. GASTROINTESTINAL: Abdomen soft, non-tender, nondistended. MUSCULOSKELETAL: No cyanosis, or edema. Right leg dressed. Peripheral perfusion intact. BACK: Nontender without obvious deformity. No CVA tenderness. A/P Assessment and Plan 66 yo with syncope episode that resulted in right ankle fracture //Syncopal episode: Cardiac enzymes are normal. EKG shows sinus rhythm. Carotid artery ultrasound no significant stenosis and 2-D echocardiogram EF 60% no abnormalities noted. Monitor on telemetry. - cardiac workup has been negative, because of the loss of bowel function will consult neuro and see if a seizure workup is needed = Discussed with neuro, who is clear patient for discharge. Holter monitor ordered. Follow-up with cardiology as outpatient. //Bimalleolar fracture, right ankle: Appreciate orthopedic surgery management. Status post ORIF. Continue pain control. Cleared by ortho for discharge. //Hypertension: Blood pressure is elevated. Continue diltiazem. Resumed amlodipine, will increase dose. //Acute kidney injury superimposed on chronic kidney disease stage IV: Monitor BUN and creatinine. Continue IV fluids. //DVT prophylaxis: MARCELLUS Lacy. Discharge Planning Discharge home with home health Cleared by neuro for discharge Cleared by ortho for d/c Donato Regan MD Oct 15, 2017 15:04
--- NOTE | 2017-10-15 15:21 | HHI.DS ---
Discharge Summary Admission Date Oct 11, 2017 at 18:37 Discharge Date: Oct 15, 2017 Admitting Diagnosis Syncope/Renal Failure/Right Ankle Fracture (1) Syncope and collapse ICD Code: R55 - Syncope and collapse Status: Acute (2) Closed bimalleolar fracture of right ankle ICD Code: S82.841A - Displaced bimalleolar fracture of right lower leg, initial encounter for closed fracture Status: Acute Procedures 10/12/17 open reduction internal fixation right ankle bimalleolar fracture, stress exam of syndesmosis Brief History - From Admission Ms. Cisneros is a pleasant 66-year-old female with a history of asthma, glaucoma, hepatitis B, hypertension, irregular heart rhythm, and heart murmur who presented to the emergency room on 10/11/2017 following a syncopal episode that resulted in a right bimalleolar ankle fracture. The patient states she was working as a guard supervisor at 2 PM. She had eaten lunch which consisted of raisin bran, a banana, and cranberry juice prior to going to work. She states she was sitting and talking to a lady who lived near her crossing site when she began to experience severe vertigo. She actually had to hold onto a light pole to steady herself. She also experienced diaphoresis and nausea. She states that this went on for several minutes and the lady left her to go get a car to take her to get help when she passed out. She describes it as "lights out". She states she fell backwards and may have hit her head. Head CT in the EGD is negative. She had loss of bowel function with large bronson consistency dark green bowel with no blood or melena noted. She denies loss of bladder function. She denies any seizure-like activity or biting her tongue. She had a cardiac workup with Dr. Whelan about 5 years ago but has had no follow-up since that time. She reports an irregular heart rhythm but denies atrial fibrillation and reports a heart murmur that she's had since childhood. She denies any chest pain, shortness of breath, headaches, unilateral weakness, or paresthesias prior to her in couple episode. She denies any recent illness, cold or flu symptoms, fevers or chills, nausea, vomiting, diarrhea, cough, or shortness of breath. She states she has been feeling very well and had gotten a clean bill of health at her primary care physician's office this week. CBC/BMP: 10/12/17 1642 10/12/17 0621 Significant Findings Laboratory Tests Test 10/12/17 16:42 White Blood Count 11.6 TH/MM3 (4.0-11.0) Red Blood Count 3.04 MIL/MM3 (4.00-5.30) Hemoglobin 9.6 GM/DL (11.6-15.3) Hematocrit 28.3 % (35.0-46.0) Neutrophils (%) (Auto) 94.2 % (16.0-70.0) Lymphocytes (%) (Auto) 4.7 % (9.0-44.0) Neutrophils # (Auto) 10.9 TH/MM3 (1.8-7.7) Lymphocytes # (Auto) 0.5 TH/MM3 (1.0-4.8) Imaging Last Impressions Carotid Artery Ultrasound 10/12/17 0000 Signed Impressions: Service Date/Time: Thursday, October 12, 2017 16:05 - CONCLUSION: There is no hemodynamically significant stenosis. Lucho Bernard MD FACR Ankle X-Ray 10/12/17 0000 Signed Impressions: Service Date/Time: Thursday, October 12, 2017 11:06 - CONCLUSION: 1. Status post right ankle ORIF, as above. Bandar James MD Head CT 10/11/17 1601 Signed Impressions: Service Date/Time: October 16:51 - CONCLUSION: Negative noncontrast CT Emiliano Bradshaw MD Chest X-Ray 10/11/17 1601 Signed Impressions: Service Date/Time: October 16:19 - CONCLUSION: No acute disease. Emiliano Bradshaw MD PE at Discharge General: No acute distress. Heart: Regular rate and rhythm. 2/6 systolic murmur. Lungs: Clear to auscultation bilaterally. No wheezes, rales, or rhonchi. Breathing is nonlabored. Abdomen: Soft, nontender, nondistended. Extremities: No lower extremity edema. Right lower leg bandaged and elevated. Psych: Alert and oriented. Hospital Course Patient underwent ORIF of right ankle bimalleolar fracture. Regarding syncopal episode versus benign paroxysmal positional vertigo, head CT with no acute findings, echocardiogram with EF 60%, no concerning findings, carotid ultrasound without hemodynamically significant stenosis. Neurology was consulted, EEG was performed and negative. Patient will be discharged home with Holter monitor, follow with cardiology.. Patient was also found to have elevated blood pressure in the 200 systolic. Blood pressure medications were adjusted. Patient has CKD, with baseline creatinine around 3.0. Creatinine fell to be 3.4, remained stable during admission. For problem-based summary from most recent progress note, please see below. 66 yo with syncope episode that resulted in right ankle fracture //Syncopal episode: Cardiac enzymes are normal. EKG shows sinus rhythm. Carotid artery ultrasound no significant stenosis and 2-D echocardiogram EF 60% no abnormalities noted. Monitor on telemetry. - cardiac workup has been negative, because of the loss of bowel function will consult neuro and see if a seizure workup is needed = Discussed with neuro, who is clear patient for discharge. Holter monitor ordered. Follow-up with cardiology as outpatient. //Bimalleolar fracture, right ankle: Appreciate orthopedic surgery management. Status post ORIF. Continue pain control. Cleared by ortho for discharge. //Hypertension: Blood pressure is elevated. Continue diltiazem. Resumed amlodipine, will increase dose. //Acute kidney injury superimposed on chronic kidney disease stage IV: Monitor BUN and creatinine. Continue IV fluids. //DVT prophylaxis: SCDs, MARCELLUS newman. Discharge Planning Discharge home with home health Cleared by neuro for discharge Cleared by ortho for d/c Pt Condition on Discharge: Good Discharge Disposition: Disch w/ Home Health Serv Discharge Time: > 30 minutes Discharge Instructions DIET: Follow Instructions for: Heart Healthy Diet Activities you can perform: Non Weight Bearing Follow up Referrals: Cardiology Orthopedics - 2 Weeks [facility] with Hardy Hartmann MD PCP Follow-up New Medications: Hydrocodone-Acetaminophen (Hydrocodone-Acetaminophen) 7.5 Mg-325 Mg Tab 1 TAB PO Q4H PRN for PAIN, #60 TAB 0 Refills Walker/Adult/Folding (Walker/Adult/Folding) 1 Mis Mis EA .ROUTE DIRECTED, #1 0 Refills Wheelchair (Wheelchair) 1 Mis Mis EA .ROUTE DIRECTED, #1 0 Refills Hydralazine HCl (Hydralazine HCl) 50 Mg Tablet 50 MG PO Q8HR for Blood Pressure Management for 30 Days, TAB Isosorbide Dinitrate ER (Isosorbide Dinitrate ER) 40 Mg Riley 40 MG PO DAILY for Blood Pressure Management for 30 Days, #30 TAB Continued Medications: Albuterol 8.5 GM Inh (Proair Hfa 8.5 GM Inh) 90 Mcg/Act Aer 2 PUFF INH Q4-6H PRN for SHORTNESS OF BREATH, #1 INHALER 0 Refills 108 mcg/actuation Amlodipine (Amlodipine) 5 Mg Tab 5 MG PO DAILY for Blood Pressure Management, #30 TAB 3 Refills Bimatoprost Opth Drops (Lumigan Opth Drops) 0.01% Soln 1 DROP EACH EYE HS for Intraocular Pressure, #1 BOTTLE 0 Refills Cholecalciferol (Vitamin D3) 2,000 Unit Cap 2000 UNITS PO DAILY for Nutritional Supplement, #1 BOTTLE 0 Refills Coenzyme Q10 (Ubidecarenone) (Co Q-10) 100 Mg Cap 100 MG PO DAILY Cyanocobalamin (Vitamin B-12) 500 Mcg Tab 500 MCG PO DAILY for Nutritional Supplement, #1 BOTTLE 0 Refills Diltiazem (Diltiazem) 120 Mg Tab 120 MG PO QID for Angina, #120 TAB 3 Refills Doxazosin (Doxazosin) 4 Mg Tab 4 MG PO DAILY, #30 TAB 3 Refills Ogsznnfoygk-Luweddpboup-Qcy C- (Glucosamine Chondroitin) 1 Cap Cap Lovastatin (Lovastatin) 20 Mg Tab 20 MG PO DAILY for Cholesterol Management, #30 TAB 3 Refills Mupirocin Topical (Mupirocin Topical) 2 % Oint 1 APPLIC TOPICAL BID for Mgmt Bacterial Infection, #22 GM 0 Refills Belton-3 Fatty Acids (Belton 3 500 500 mg) 1 Cap Cap 1000 MG PO DAILY Donato Regan MD Oct 15, 2017 15:21
[2017-10-15 16:00] VITALS: BP 159/68; PULSE 89; RESP 18; TEMP 99.2; O2SAT 96
[2017-10-16] MEDS ORDERED: amLODIPine BESYLATE 5 MG TAB PO SCH (09:00)
[2017-10-16] MEDS ORDERED: ISOSORBIDE DINITRATE 40 MG SUSTAINED RELEASE TAB PO SCH (11:00)
== END 2017-10-15 18:09 | disposition home health service (06) | DRG 493 ==
LOC: NEPC 14:56 → NEDA 18:37 → N06B 19:44
PROVIDERS: ADMIT Internal Medicine; ATTEND Internal Medicine
PROC: 0QSJ04Z Reposition Right Fibula with Internal Fixation Device, Open Approach (ICD-10-PCS; 2017-10-12)
PROC: 0QSG04Z Reposition Right Tibia with Internal Fixation Device, Open Approach (ICD-10-PCS; principal; 2017-10-12 09:55)
DX: S82.841A Displaced bimalleolar fracture of right lower leg, initial encounter for closed fracture (principal); N17.9 Acute kidney failure, unspecified; N18.4 Chronic kidney disease, stage 4 (severe); R55 Syncope and collapse; I12.9 Hypertensive chronic kidney disease with stage 1 through stage 4 chronic kidney disease, or unspecified chronic kidney disease; J45.909 Unspecified asthma, uncomplicated; D63.1 Anemia in chronic kidney disease; E66.9 Obesity, unspecified; H40.9 Unspecified glaucoma; R01.1 Cardiac murmur, unspecified; W18.39XA Other fall on same level, initial encounter; Z68.36 Body mass index [BMI] 36.0-36.9, adult; Z86.19 Personal history of other infectious and parasitic diseases
CPT/HCPCS: 29515; 70450; 71045; 73600; 73610; 76000; 80048; 80053; 82550; 82552; 83735; 84484; 85025; 85610; 85730; 93005; 93225; 93226; 93306; 93880; 94150; 95819; 96361; 96374; 96375; C1713; J0690; J1100; J1580; J2270; J2405; J3010; J3370; J7030

== ENCOUNTER → 2017-11-26 | Outpatient (CLI) | payer MEDICARE, MEDICAID ==
[~2017-11-26] MED LIST changes: -BRIN1SUS2 RIGHT EYE; -CLON0.2T PO; -FRESDRO EACH EYE; +HYDR-3580 PO; +HYDR-3800 PO; +ISOR40CR PO; +WALKER/ADULT/FO1 MIS; +WHEEMIS3
[2017-11-26 11:48] LABS: AUTOMATED NEUTROPHIL # 4.9 TH/MM3 (1.8-7.7); BASOPHIL % 0.3 % (0.0-2.0); EOSINOPHIL # 0.1 TH/MM3 (0-0.4); EOSINOPHIL % 1.5 % (0.0-4.0); HEMATOCRIT 29.4 % (35.0-46.0); HEMOGLOBIN 9.9 GM/DL (11.6-15.3); LYMPH % 19.5 % (9.0-44.0); LYMPHOCYTE # 1.4 TH/MM3 (1.0-4.8); MEAN CELL VOLUME 91.4 FL (80.0-100.0); MEAN CORPUSCULAR HEMOGLOBIN 30.8 PG (27.0-34.0); MEAN CORPUSCULAR HGB CONC 33.7 % (32.0-36.0); MONO % 8.7 % (0.0-8.0); MONOCYTE # 0.6 TH/MM3 (0-0.9); PLATELET COUNT 197 TH/MM3 (150-450); RED BLOOD COUNT 3.21 MIL/MM3 (4.00-5.30); RED CELL DISTRIBUTION WIDTH 13.5 % (11.6-17.2); WHITE BLOOD COUNT 6.9 TH/MM3 (4.0-11.0)
[2017-11-26 12:11] LABS: ALBUMIN 3.8 GM/DL (3.4-5.0); BICARBONATE 29.9 MEQ/L (21.0-32.0); CALCIUM 9.2 MG/DL (8.5-10.1); CREATININE 3.05 MG/DL (0.50-1.00)
[2017-11-26 12:12] LABS: PHOSPHORUS 4.3 MG/DL (2.5-4.9)
== END ==
LOC: CLAB 10:27
PROVIDERS: ATTEND Internal Medicine Nephrology
DX: N18.4 Chronic kidney disease, stage 4 (severe) (principal); R80.9 Proteinuria, unspecified
CPT/HCPCS: 36415; 80069; 82043; 83970; 85025

== ENCOUNTER 2018-02-15 16:41 | Emergency (ER) | END 2018-02-15 18:12 | disposition home or self-care (01) | DX: L98.9 Disorder of the skin and subcutaneous tissue, unspecified (principal); I10 Essential (primary) hypertension ==

== ENCOUNTER 2018-02-20 00:12 | Emergency (ER) | payer MEDICARE, MEDICAID ==
[~2018-02-20] VITALS: Ht 170.2 cm; Wt 97.5 kg
[2018-02-20 00:16] VITALS: BP 188/84; PULSE 88; RESP 18; TEMP 98.2; O2SAT 100
--- NOTE | 2018-02-20 01:42 | PD ---
HPI Chief Complaint: Bleeding Time Seen by Provider: 01:29 Travel History International Travel<30 days: No Contact w/Intl Traveler<30days: No Traveled to known affect area: No History of Present Illness HPI 67-year-old right-hand dominant black female presents emergency department with a bleeding sore from her right ring finger. She states that this is been present now for the past year. Every time she bends her finger it opens and bleeds. She was seen in the ER on the 18. For the same. She states that she bent her finger this evening and started bleeding profusely. She is up-to- date with immunizations. She denies any laceration. No numbness, tingling or weakness. Symptoms are moderate. Alleviated with direct pressure. PFSH Past Medical History Arthritis: No Asthma: Yes Autoimmune Disease: No Anxiety: No Depression: No Heart Rhythm Problems: No Cancer: No Cardiovascular Problems: No High Cholesterol: No Chemotherapy: No Chest Pain: No Congestive Heart Failure: No COPD: No Cerebrovascular Accident: No Diabetes: No Diminished Hearing: No Endocrine: No Gastrointestinal Disorders: No GERD: No Glaucoma: Yes (NO RX) Genitourinary: No Headaches: No Hepatitis: Yes (HEPATITIS B) Hiatal Hernia: No Heparin Induced Thrombocytopen: No Hypertension: Yes Immune Disorder: No Implanted Vascular Access Dvce: No Kidney Stones: No Medical other: Yes (ANGIOEDEMA AFTER EATING RAISIN BRAN 06/26/2013) Musculoskeletal: No Neurologic: No Psychiatric: No Reproductive: Yes (HX. FIBROIDS/UTERINE POLYP, UTERINE MASS CURRENT) Respiratory: Yes Immunizations Current: Yes Migraines: No Radiation Therapy: No Renal Failure: No Seizures: No Sickle Cell Disease: No Sleep Apnea: No Thyroid Disease: No Ulcer: No Tetanus Vaccination: < 5 Years Influenza Vaccination: Yes ?: Not Menopausal: Yes Past Surgical History Abdominal Surgery: No AICD: No Arteriovenous Shunt: No Cardiac Surgery: No Ear Surgery: No Endocrine Surgery: No Eye Surgery: Yes Genitourinary Surgery: No Gynecologic Surgery: Yes (FIBROIDS REMOVED, UTERINE POLYPECTOMY) Hysterectomy: Yes Insulin Pump: No Joint Replacement: No Neurologic Surgery: No Oral Surgery: No Pacemaker: No Thoracic Surgery: No Other Surgery: Yes (POLYPS REMOVED, breast biopsy ) Social History Alcohol Use: No Tobacco Use: No Substance Use: No Allergies-Medications (Allergen,Severity, Reaction): Coded Allergies: benazepril (Unverified Allergy, Severe, Anaphylaxis, 02/20/18) captopril (Unverified Allergy, Severe, Anaphylaxis, 02/20/18) enalaprilat (Unverified Allergy, Severe, Anaphylaxis, 02/20/18) fosinopril (Unverified Allergy, Severe, Anaphylaxis, 02/20/18) lisinopril (Unverified Allergy, Severe, ANAPHYLACTIC REACTION, 02/20/18) quinapril (Unverified Allergy, Severe, Anaphylaxis, 02/20/18) cayenne pepper fruits (Unverified Allergy, Intermediate, Hives, 02/20/18) phenobarbital (Unverified Allergy, Mild, 02/20/18) Reported Meds & Prescriptions Reported Meds & Active Scripts Active Hydralazine HCl 50 Mg Tablet 50 Mg PO Q8HR 30 Days Isosorbide Dinitrate ER (Isosorbide Dinitrate) 40 Mg Riley 40 Mg PO DAILY 30 Days Hydrocodone-Acetaminophen 7.5 Mg-325 Mg Tab 1 Tab PO Q4H PRN Wheelchair (Device) 1 Mis Mis Ea .ROUTE DIRECTED Walker/Adult/Folding (Device) 1 Mis Mis Ea .ROUTE DIRECTED Proair Hfa 8.5 GM Inh (Albuterol Sulfate) 90 Mcg/Act Aer 2 Puff INH Q4-6H PRN 108 mcg/actuation Diltiazem (Diltiazem HCl) 120 Mg Tab 120 Mg PO QID Mupirocin Topical (Mupirocin) 2 % Oint 1 Applic TOPICAL BID Amlodipine (Amlodipine Besylate) 5 Mg Tab 5 Mg PO DAILY Doxazosin (Doxazosin Mesylate) 4 Mg Tab 4 Mg PO DAILY Lovastatin 20 Mg Tab 20 Mg PO DAILY Reported Vitamin B-12 (Cyanocobalamin) 500 Mcg Tab 500 Mcg PO DAILY Glucosamine Chondroitin (Hpgbxtpuius-Yqtcikqegpm-Okz C-) 1 Cap Cap Whitfield 3 500 500 mg (Whitfield-3 Fatty Acids) 1 Cap Cap 1,000 Mg PO DAILY Vitamin D3 (Cholecalciferol) 2,000 Unit Cap 2,000 Units PO DAILY Co Q-10 (Coenzyme Q10 (Ubidecarenone)) 100 Mg Cap 100 Mg PO DAILY Lumigan Opth Drops (Bimatoprost) 0.01% Soln 1 Drop EACH EYE HS Review of Systems General / Constitutional: No: Fever Eyes: No: Visual changes HENT: No: Headaches Cardiovascular: No: Chest Pain or Discomfort Respiratory: No: Shortness of Breath Gastrointestinal: No: Abdominal Pain Genitourinary: No: Dysuria Musculoskeletal: No: Pain Skin: No Rash Neurologic: No: Weakness Psychiatric: No: Depression Endocrine: No: Polydipsia Hematologic/Lymphatic: No: Easy Bruising Physical Exam Narrative GENERAL: This is a well-nourished, well-developed patient, in no apparent distress. SKIN: No rashes, ecchymoses or lesions. Warm and dry. HEAD: Atraumatic. Normocephalic. EYES: PERRL, EOMI, no discharge or injection. No scleral icterus. EARS: Clear NOSE: Nasal turbinates appear normal. THROAT: Mucosa pink and moist. Airway patent. NECK: Trachea midline. supple, moves head freely. LUNGS: Clear to auscultation. CV: Regular in rhythm. ABDOMEN: Soft nontender. EXT: No clubbing cyanosis or edema. Examine of the right ring finger reveals a large pyogenic granuloma which is friable and easily bleeds. Data Data Last Documented VS Vital Signs Date Time Temp Pulse Resp B/P (MAP) Pulse Ox O2 Delivery O2 Flow Rate FiO2 02/20/18 00:16 98.2 88 18 188/84 (118) 100 Orders Orders Ed Discharge Order (02/20/18 02:04) Gelatin 12 Mm/7 Mm Top (Gelfoam 12 Mm/7 (02/20/18 02:15) MDM Medical Decision Making Medical Screen Exam Complete: Yes Emergency Medical Condition: Yes Medical Record Reviewed: Yes Differential Diagnosis MDM: High Differential diagnoses: Fracture, sprain, strain, dislocation, contusion, neurovascular injury, laceration Narrative Course Patient's ring is removed by the nursing staff. Surgicel and large bulky dressing applied. Patient is advised that she needs to see a hand surgeon. Diagnosis Primary Impression: Pyogenic granuloma Referrals: Christa Glass MD 1 day Patient Instructions: General Instructions Additional Instructions: Rest. Elevation. Keep clean and dry. Keep your dressing on a do not remove it. Follow-up with Dr. Glass the hand surgeon. Call his office in the morning for an appointment. Med/Other Pt SpecificInfo: Wound Care Disposition: 01 DISCHARGE HOME Condition: Stable Travon Alva. PA February 20, 2018 01:42
[2018-02-20] MEDS ORDERED: GELATIN 12 MM/7 MM FOAM TOPICAL ONE (02:15)
== END 2018-02-20 02:41 | disposition home or self-care (01) ==
LOC: NEPD 00:12
DX: L98.0 Pyogenic granuloma (principal); J45.909 Unspecified asthma, uncomplicated; I10 Essential (primary) hypertension
CPT/HCPCS: 12001

== ENCOUNTER → 2018-03-25 | Outpatient (CLI) | payer MEDICARE, MEDICAID ==
[2018-03-25 08:58] LABS: AUTOMATED NEUTROPHIL # 4.2 TH/MM3 (1.8-7.7); BASOPHIL % 0.5 % (0.0-2.0); EOSINOPHIL # 0.1 TH/MM3 (0-0.4); EOSINOPHIL % 1.4 % (0.0-4.0); HEMATOCRIT 27.3 % (35.0-46.0); HEMOGLOBIN 9.3 GM/DL (11.6-15.3); LYMPH % 24.5 % (9.0-44.0); LYMPHOCYTE # 1.6 TH/MM3 (1.0-4.8); MEAN CELL VOLUME 91.5 FL (80.0-100.0); MEAN CORPUSCULAR HEMOGLOBIN 31.1 PG (27.0-34.0); MEAN PLATELET VOLUME 9.3 FL (7.0-11.0); MONO % 8.7 % (0.0-8.0); MONOCYTE # 0.6 TH/MM3 (0-0.9); NEUT % 64.9 % (16.0-70.0); PLATELET COUNT 156 TH/MM3 (150-450); RED BLOOD COUNT 2.98 MIL/MM3 (4.00-5.30); RED CELL DISTRIBUTION WIDTH 12.9 % (11.6-17.2); WHITE BLOOD COUNT 6.5 TH/MM3 (4.0-11.0)
[2018-03-25 09:24] LABS: ALBUMIN 3.3 GM/DL (3.4-5.0); BICARBONATE 23.8 MEQ/L (21.0-32.0); BLOOD UREA NITROGEN 39 MG/DL (7-18); CALCIUM 8.3 MG/DL (8.5-10.1); CHLORIDE 109 MEQ/L (98-107); CREATININE 3.35 MG/DL (0.50-1.00); GLOMERULAR FILTRATION RATE 16 ML/MIN (>89); GLUCOSE,FASTING 95 MG/DL (74-99); SODIUM (NA) 142 MEQ/L (136-145)
[2018-03-25 09:25] LABS: IRON (FE) 39 MCG/DL (50-170); PHOSPHORUS 4.1 MG/DL (2.5-4.9)
[2018-03-25 09:29] LABS: % SATURATION IRON PROFILE 16.1 % (20-50); FERRITIN 190 NG/ML (8-252); TOTAL IRON BINDING CAPACITY 242 MCG/DL (250-450)
== END ==
LOC: CLAB 07:57
PROVIDERS: ATTEND Internal Medicine Nephrology
DX: N25.81 Secondary hyperparathyroidism of renal origin (principal); N18.4 Chronic kidney disease, stage 4 (severe); D63.1 Anemia in chronic kidney disease
CPT/HCPCS: 36415; 80069; 82306; 82728; 83540; 83550; 83970; 85025